=== PATIENT | male | born 1970 | race African-American/Black ===

== ENCOUNTER 2016-09-09 22:58 | Emergency (ER) | payer MEDICARE, OTHER ==
[~2016-09-09] VITALS: Ht 171.4 cm; Wt 92.5 kg
[~2016-09-09 22:58] MED LIST: BENZ1TAB PO; DIVA500 OR; FLUP10TA5 PO; LORA-392 PO; LURA40 OR; OMEP20TA OR
[2016-09-09 23:15] VITALS: BP 135/88; PULSE 71; RESP 16; TEMP 98.2; O2SAT 99
[2016-09-09] MEDS ORDERED: TEGR200T PO (23:18)
[2016-09-09] MEDS ORDERED: ZYPR20TA PO (23:18)
[2016-09-09] MEDS ORDERED: HALO100P IM (23:18)
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
[2016-09-10 00:06] LABS: AUTOMATED NEUTROPHIL # 4.2 TH/MM3 (1.8-7.7); BASOPHIL % 0.4 % (0.0-2.0); EOSINOPHIL # 0.1 TH/MM3 (0-0.4); EOSINOPHIL % 1.8 % (0.0-4.0); HEMATOCRIT 38.7 % (39.0-51.0); HEMO FLAGS DIFF FINAL; LYMPH % 21.6 % (9.0-44.0); LYMPHOCYTE # 1.4 TH/MM3 (1.0-4.8); MEAN CELL VOLUME 85.3 FL (80.0-100.0); MEAN CORPUSCULAR HEMOGLOBIN 29.7 PG (27.0-34.0); MEAN CORPUSCULAR HGB CONC 34.9 % (32.0-36.0); MONO % 11.9 % (0.0-8.0); NEUT % 64.3 % (16.0-70.0); PLATELET COUNT 240 TH/MM3 (150-450); RED BLOOD COUNT 4.54 MIL/MM3 (4.50-5.90); RED CELL DISTRIBUTION WIDTH 12.5 % (11.6-17.2); WHITE BLOOD COUNT 6.6 TH/MM3 (4.0-11.0)
[2016-09-10 00:26] LABS: ANION GAP 7 MEQ/L (5-15)
[2016-09-10 00:27] LABS: AMPHETAMINE, URINE NEG (NEG); BARBITURATES, URINE NEG (NEG); COCAINE, URINE NEG (NEG)
[2016-09-10 00:28] LABS: ALKALINE PHOSPHATASE 105 U/L (45-117); ALT (GPT) 34 U/L (12-78); AST (GOT) 17 U/L (15-37); BICARBONATE 30.9 MEQ/L (21.0-32.0); BLOOD UREA NITROGEN 14 MG/DL (7-18); CHLORIDE 101 MEQ/L (98-107); GLOMERULAR FILTRATION RATE 102 ML/MIN (>89); SODIUM (NA) 139 MEQ/L (136-145); TOTAL BILIRUBIN ADULT 0.1 MG/DL (0.2-1.0)
[2016-09-10 00:29] LABS: ACETAMINOPHEN LESS THAN 2.0 MCG/ML (10.0-30.0)
[2016-09-10 06:06] VITALS: BP 122/81; PULSE 105; RESP 16; O2SAT 99
[2016-09-10] MEDS ORDERED: carBAMazepine 200 MG TAB PO SCH (11:30)
[2016-09-10] MEDS ORDERED: OLANZapine 10 MG TAB PO SCH (11:30)
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
[2016-09-10] MEDS ORDERED: ZYPR20TA PO (12:05)
[2016-09-10] MEDS ORDERED: TEGR200T PO (12:05)
[2016-09-10 12:22] VITALS: BP 112/71; PULSE 104; RESP 18; O2SAT 98
== END 2016-09-10 12:50 | disposition home or self-care (01) ==
LOC: NEPA 22:58 → NEPJ 09-10 12:50
DX: F22 Delusional disorders (principal); F20.0 Paranoid schizophrenia; Z86.69 Personal history of other diseases of the nervous system and sense organs; Z86.59 Personal history of other mental and behavioral disorders
CPT/HCPCS: 80053; 80307; 85025; 99283

== ENCOUNTER 2016-09-30 09:50 | Emergency (ER) | payer OTHER, MEDICARE ==
[~2016-09-30] VITALS: Ht 172.7 cm; Wt 90.0 kg
[~2016-09-30 09:50] MED LIST changes: -BENZ1TAB PO; -DIVA500 OR; -FLUP10TA5 PO; +HALO100P IM; -LORA-392 PO; -LURA40 OR; -OMEP20TA OR; +TEGR200T PO; +ZYPR20TA PO
[2016-09-30 09:52] VITALS: BP 130/89; PULSE 88; RESP 20; TEMP 98.5; O2SAT 98
[2016-09-30 10:09] VITALS: BP 131/77; PULSE 97; RESP 16; O2SAT 100
[2016-09-30 10:44] LABS: AUTOMATED NEUTROPHIL # 7.7 TH/MM3 (1.8-7.7); BASOPHIL % 0.3 % (0.0-2.0); EOSINOPHIL # 0.1 TH/MM3 (0-0.4); EOSINOPHIL % 0.7 % (0.0-4.0); HEMO FLAGS DIFF FINAL; LYMPH % 7.8 % (9.0-44.0); LYMPHOCYTE # 0.7 TH/MM3 (1.0-4.8); MEAN CELL VOLUME 87.5 FL (80.0-100.0); MEAN CORPUSCULAR HEMOGLOBIN 28.6 PG (27.0-34.0); MEAN CORPUSCULAR HGB CONC 32.7 % (32.0-36.0); MONO % 6.7 % (0.0-8.0); NEUT % 84.5 % (16.0-70.0); PLATELET COUNT 224 TH/MM3 (150-450); RED BLOOD COUNT 4.57 MIL/MM3 (4.50-5.90); RED CELL DISTRIBUTION WIDTH 13.3 % (11.6-17.2); WHITE BLOOD COUNT 9.1 TH/MM3 (4.0-11.0)
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
[2016-09-30 10:58] LABS: ANION GAP 9 MEQ/L (5-15); AST (GOT) 16 U/L (15-37); BICARBONATE 28.3 MEQ/L (21.0-32.0); BLOOD UREA NITROGEN 11 MG/DL (7-18); CHLORIDE 105 MEQ/L (98-107); GLOMERULAR FILTRATION RATE 99 ML/MIN (>89); POTASSIUM 3.4 MEQ/L (3.5-5.1); SODIUM (NA) 142 MEQ/L (136-145)
[2016-09-30 11:02] LABS: ALKALINE PHOSPHATASE 117 U/L (45-117); ALT (GPT) 28 U/L (12-78); TOTAL BILIRUBIN ADULT 0.3 MG/DL (0.2-1.0)
[2016-09-30 11:17] LABS: AMPHETAMINE, URINE NEG (NEG); BARBITURATES, URINE NEG (NEG); COCAINE, URINE NEG (NEG)
[2016-09-30 13:21] VITALS: BP 121/58; PULSE 96; RESP 18; TEMP 97.2; O2SAT 100
--- NOTE | 2016-09-30 17:38 | PD.CONS ---
Provisional Diagnosis Admission Date 09/30/2016 Paradox I. 1. Suspect malingering for half-way and possibly also to obtain supportive documentation for a lawsuit that he is filing against the [facility], or for disability 2. Reported history of schizophrenia Paradox II. 1. 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 GAF is 54 presently History of Present Illness Service Psychiatry Consult Requested By Emergency department Reason for Consult Voluntary psychiatric evaluation Primary Care Physician No Primary Care Physician HPI Mr. Jacome is a 46-year-old male with a reported history of paranoid schizophrenia who presented to the emergency department voluntarily with complaints of suicidal ideation and a litany of physical complaints. Psychiatric screening reviewed. Electronic medical record reviewed, and I note the patient was seen by nurse practitioner Mike the middle of last month following his [facility] from [facility]. He was admitted most recently for a single day under Dr. Reza in 2011, and there was suspicion for malingering at that time. Patient seen and examined. Chart reviewed. Case discussed with nurse in the J- pod. There has been no evidence of any suicidal or homicidal behavior while the patient has been under observation in the J-pod. On my examination today, patient is an affable, if somewhat poor historian. He says that he was released a few days ago from a hospital in [place]. He produces a litany of physical complaints including "diabetes, Alzheimer's, bone marrow cancer, premature ejaculation" that he was hoping the ED physician could address for him. He admits to hearing voices but says that these are only "good" voices telling him to take his meds among other things. He denies any deprecatory auditory hallucinations and likewise denies any command auditory hallucinations to hurt self/others. I can elicit no delusional beliefs. Besides his medical complaints, the patient seems primarily concerned with getting supportive documentation for a lawsuit that he is filing against the [facility]. He asks me several times to document things in such a way in service of his lawsuit against the [facility]. Mood is stable and euthymic and I can detect no depressive or hypomanic/manic symptoms. He denies any suicidal or homicidal ideation, intent or plan at this time. The remainder of the psychiatric ROS is negative. The patient requests discharge from the psychiatric emergency room at this time saying that he has to get back to the [facility] half-way or he will lose his bed. Past psychiatric history: Patient reports a history of paranoid schizophrenia. He says that he is managed at [facility]. He takes Tegretol and Zyprexa and also Haldol Decanoate. He has an adequate supply of the Tegretol and Zyprexa. He reports that he was just recently discharged from the inpatient psychiatric unit at a hospital in [place]. He reports 1 prior suicide attempt by overdose on pills. Family history: The patient reports that his mother had schizophrenia and his mother and father both drank alcohol. Chemical dependency history: The patient denies a history of abuse of drugs or alcohol. Social history: The patient is presently homeless and residing at the [facility]. He is single with no children. He reports 3-1/2 years of college. He reports that he is trying to get his disability benefits back and in the meantime he does part-time work. He denies any history. He reports a history of battery charges but insists that this was a crime he did not commit. No reported access to guns or firearms. Patient says that he has a variety of faiths including Zoroastrianism, Restoration and Congregation. Review of Systems Except as stated in HPI: all other systems reviewed are Neg Past Family Social History Coded Allergies: Pork (Verified Allergy, Severe, 09/30/16) Ibuprofen (Verified Allergy, Unknown, 09/30/16) Past Medical History See electronic medical record Reported Medications Olanzapine (Zyprexa)20 Mg Tab20 Mg PO BID #60 TAB Ref 0 09/09/16 Carbamazepine (Tegretol)200 Mg [id number] Mg PO BID #60 TAB Ref 0 09/09/16 Haloperidol Decanoate Inj (Haldol Decanoate Inj)100 Mg/Ml [id number] Mg IM Q28D #1 VIAL Ref 0 09/09/16 Discontinued Scripts Olanzapine (Zyprexa)20 Mg Tab20 Mg PO BID 30 Days Ref 0 Prov:Mckeon,Siomara Anaid Bergeron ARN 09/10/16 Carbamazepine (Tegretol)200 Mg You530 Mg PO BID 30 Days Ref 0 Prov:Mckeon,Siomara Anaid Bergeron ARN 09/10/16 See above Family History See above Social History See above Patient's Strengths (min. 2) Maintain basic hygiene. Verbally fluent. Physical Exam Physical examination completed by ED provider. On my examination today, patient appears to be in no acute physical distress. He is well-nourished and well-developed. No motoric abnormalities noted. Laboratories and vital signs reviewed: Vital Signs Vital Signs Date Time Temp Pulse Resp B/P Pulse Ox O2 Delivery O2 Flow Rate FiO2 09/30/16 13:21 97.2 96 18 121/58 100 Room Air Lab Results Item Value Date Time White Blood Count 9.1 TH/MM3 09/30/16 1015 Hemoglobin 13.1 GM/DL 09/30/16 1015 Platelet Count 224 TH/MM3 09/30/16 1015 Sodium Level 142 MEQ/L 09/30/16 1015 Potassium Level 3.4 MEQ/L L 09/30/16 1015 Chloride Level 105 MEQ/L 09/30/16 1015 Carbon Dioxide Level 28.3 MEQ/L 09/30/16 1015 Blood Urea Nitrogen 11 MG/DL 09/30/16 1015 Creatinine 0.98 MG/DL 09/30/16 1015 Aspartate Amino Transf (AST/SGOT) 16 U/L 09/30/16 1015 Alanine Aminotransferase (ALT/SGPT) 28 U/L 09/30/16 1015 Alkaline Phosphatase 117 U/L 09/30/16 1015 Urine toxicology negative. Mental Status Examination Patient is in hospital gown. He is well groomed. He is awake and alert and oriented to person and hospital at least. No motoric abnormalities noted. Speech is within normal limits for rate, tone and volume. Language and fund of knowledge seem mildly reduced. Mood is fair and affect is full and reactive. Thought process linear. No loosening of associations. No evident delusions. Auditory hallucinations as above. Denies command auditory hallucinations to hurt self/others no other hallucinatory material. Denies suicidal or homicidal ideation. Insight and judgment are fair at best. 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 On my examination today, the patient denies any suicidal or homicidal ideation. He appears to be attending to his basic needs. There is no evidence of any severely unstable mood, anxiety or psychotic disorder in this patient at this time. Synthesizing the above, I magistrate judge the patient does not presently meet Levin act criteria. Given that the patient does not meet Levin act criteria and given that the patient is requesting discharge from the psychiatric emergency room today, I must recommend his discharge from from the ED from a psychiatric standpoint. I do suspect that there is some degree of malingering for the reasons noted above. Patient is to follow up with outpatient psychiatric provider and continue with psychotropic medications. Patient is to return to the psychiatric emergency room for any concerning psychiatric symptoms. Patient is otherwise psychiatrically clear for discharge from the ED. Case discussed with nurse in the J-pod. Thank you very much for this consultation. Brayan Ewing MD Sep 30, 2016 17:38
== END 2016-09-30 18:27 | disposition home or self-care (01) ==
LOC: NEPC 09:50 → NEPJ 18:27
DX: R45.851 Suicidal ideations (principal); R41.83 Borderline intellectual functioning; F20.9 Schizophrenia, unspecified; Z79.899 Other long term (current) drug therapy
CPT/HCPCS: 80053; 80307; 85025; 99284

== ENCOUNTER 2016-10-04 11:08 | Emergency (ER) | payer MEDICARE, OTHER ==
[~2016-10-04] VITALS: Ht 175.3 cm; Wt 92.5 kg
[2016-10-04 11:10] VITALS: BP 138/91; PULSE 98; RESP 16; TEMP 98; O2SAT 98
[2016-10-04] MEDS ORDERED: BENZ100 PO (11:31)
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
[2016-10-04] MEDS ORDERED: ACETAMINOPHEN 325 MG TAB PO ONE (11:45)
== END 2016-10-04 11:46 | disposition home or self-care (01) ==
LOC: NEPK 11:08
DX: R04.0 Epistaxis (principal); B34.9 Viral infection, unspecified; F31.9 Bipolar disorder, unspecified; R73.03 Prediabetes; F20.9 Schizophrenia, unspecified
CPT/HCPCS: 99282

== ENCOUNTER 2016-10-04 18:21 | Emergency (ER) | payer OTHER ==
[~2016-10-04] VITALS: Ht 175.3 cm; Wt 93.0 kg
[~2016-10-04 18:21] MED LIST changes: +BENZ100 PO
[2016-10-04 18:28] VITALS: BP 142/87; PULSE 80; RESP 16; TEMP 97.9; O2SAT 97
--- NOTE | 2016-10-04 18:51 | PD ---
Physical Exam Date Seen by Provider: Oct 04, 2016 Time Seen by Provider: 18:50 Narrative 46 YOBM BY EMS FOR RECURRENT NOSE BLEED. SEEN EARLIER TODAY IN ER VSS. PT AWAITING BED PLACEMENT Data Data Last Documented VS Vital Signs Date Time Temp Pulse Resp B/P Pulse Ox O2 Delivery O2 Flow Rate FiO2 10/04/16 18:28 97.9 80 16 142/87 97 MDM Medical Record Reviewed: Yes Supervised Visit with MARI: Yes Abrahan Ferro Oct 04, 2016 18:51
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
== END 2016-10-04 20:00 | disposition home or self-care (01) ==
LOC: NEPD 18:21
DX: R04.0 Epistaxis (principal); F31.9 Bipolar disorder, unspecified; F20.9 Schizophrenia, unspecified
CPT/HCPCS: 99283

== ENCOUNTER 2016-10-12 21:31 | Emergency (ER) | payer MEDICARE, OTHER ==
[~2016-10-12] VITALS: Ht 188 cm; Wt 93.0 kg
[2016-10-12 21:45] VITALS: BP 120/84; PULSE 64; RESP 16; TEMP 98.5; O2SAT 100
--- NOTE | 2016-10-12 22:06 | PD ---
Physical Exam Time Seen by Provider: 22:00 Narrative Pt presents to ED for evaluation of Bilateral knee pain. Pt has history of bilateral leg pain and takes medication for this, but states after lying down for about 2 hours this evening his right leg began to hurt, primarily around the knee cap. He does not recall any new injury. He states when he got out of the van to get here, his left knee started to hurt. Denies any recent illnesses. Pt has history of bipolar, paranoid schizophrenia, parkinsons disease , PTSD, borderline diabetic, anxiety. Data Data Last Documented VS Vital Signs Date Time Temp Pulse Resp B/P Pulse Ox O2 Delivery O2 Flow Rate FiO2 10/12/16 21:45 98.5 64 16 120/84 100 MDM Medical Record Reviewed: Yes Supervised Visit with MARI: No Narrative Course 46 year old male presents to ED for evaluation of bilateral knee pain. Appears without distress. vSS Condition: Stable Nadiya Elizabeth Oct 12, 2016 22:06
[2016-10-12] MEDS ORDERED: CAPS0.073 TOPICAL (22:26)
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
== END 2016-10-12 22:56 | disposition home or self-care (01) ==
LOC: NEPK 21:31
DX: M25.562 Pain in left knee (principal); M25.561 Pain in right knee; E11.9 Type 2 diabetes mellitus without complications
CPT/HCPCS: 99283

== ENCOUNTER 2016-10-15 17:01 | Emergency (ER) | payer MEDICARE, OTHER ==
[~2016-10-15] VITALS: Ht 175.3 cm; Wt 93.0 kg
[~2016-10-15 17:01] MED LIST changes: +CAPS0.073 TOPICAL
[2016-10-15 17:03] VITALS: BP 141/86; PULSE 79; RESP 18; TEMP 97.8; O2SAT 98
--- NOTE | 2016-10-15 17:12 | PD ---
Physical Exam Time Seen by Provider: 17:09 Narrative 46yo M c/o SI. No current plan.. HX of suicidal attempt. On psych meds and says they are not working. Also c/o posterior head and neck pain on and off for the past 20-30 days; onset 20 minutes ago. reports vomiting once yesterday and the day before. Patient stable. Patient seen in triage. Awaiting bed placement. Data Data Last Documented VS Vital Signs Date Time Temp Pulse Resp B/P Pulse Ox O2 Delivery O2 Flow Rate FiO2 10/15/16 17:03 97.8 79 18 141/86 98 MDM Supervised Visit with MARI: Brenda Woodson Oct 15, 2016 17:11
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
[2016-10-15] MEDS ORDERED: traMADol HCL 50 MG TAB PO ONE (19:00)
--- NOTE | 2016-10-15 19:28 | RADRPT ---
EXAM DATE/TIME: 10/15/2016 19:07 [place] COMPARISON: No previous studies available for comparison. INDICATIONS : Cephalgia. RADIATION DOSE: 43.43 CTDIvol (mGy) MEDICAL HISTORY : Seizures. SURGICAL HISTORY : None. ENCOUNTER: Initial ACUITY: 1 month PAIN SCALE: 10/10 LOCATION: cranial TECHNIQUE: Multiple contiguous axial images were obtained of the head. Using automated exposure control and adj ustment of the mA and/or kV according to patient size, radiation dose was kept as low as reasonably a chievable to obtain optimal diagnostic quality images. FINDINGS: There is no evidence for intracranial hemorrhage, mass effect, mass lesions, edema, or extra-axial fl uid collections. The visualized bony structures appear intact. The ventricles are normal size for t he patient's age. There are no signs of acute infarction for technique. CONCLUSION: Unremarkable study. Sarah Joseph MD on October 15, 2016 at 19:26 Board Certified Radiologist. This report was verified electronically.
[2016-10-15 19:48] LABS: AUTOMATED NEUTROPHIL # 4.5 TH/MM3 (1.8-7.7); BASOPHIL % 0.5 % (0.0-2.0); EOSINOPHIL # 0.1 TH/MM3 (0-0.4); EOSINOPHIL % 1.5 % (0.0-4.0); HEMATOCRIT 35.2 % (39.0-51.0); HEMO FLAGS DIFF FINAL; LYMPH % 17.1 % (9.0-44.0); LYMPHOCYTE # 1.1 TH/MM3 (1.0-4.8); MEAN CORPUSCULAR HEMOGLOBIN 29.2 PG (27.0-34.0); MONO % 9.6 % (0.0-8.0); NEUT % 71.3 % (16.0-70.0); PLATELET COUNT 289 TH/MM3 (150-450); RED BLOOD COUNT 4.09 MIL/MM3 (4.50-5.90); WHITE BLOOD COUNT 6.2 TH/MM3 (4.0-11.0)
[2016-10-15 19:57] LABS: ANION GAP 8 MEQ/L (5-15)
[2016-10-15 20:00] LABS: ALKALINE PHOSPHATASE 115 U/L (45-117); ALT (GPT) 26 U/L (12-78); AST (GOT) 17 U/L (15-37); BICARBONATE 27.7 MEQ/L (21.0-32.0); BLOOD UREA NITROGEN 11 MG/DL (7-18); CHLORIDE 106 MEQ/L (98-107); GLOMERULAR FILTRATION RATE 111 ML/MIN (>89); POTASSIUM 3.6 MEQ/L (3.5-5.1); SODIUM (NA) 142 MEQ/L (136-145); TOTAL BILIRUBIN ADULT 0.1 MG/DL (0.2-1.0)
[2016-10-15 21:42] LABS: AMPHETAMINE, URINE NEG (NEG); BARBITURATES, URINE NEG (NEG); COCAINE, URINE NEG (NEG)
[2016-10-16 04:24] VITALS: BP 110/56; PULSE 99; RESP 19; TEMP 98.7; O2SAT 95
[2016-10-16 06:00] VITALS: BP 111/55; PULSE 92; RESP 17; O2SAT 98
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
== END 2016-10-16 12:03 | disposition home or self-care (01) ==
LOC: NEPE 17:01 → NEPJ 10-16 12:03
DX: R45.851 Suicidal ideations (principal); F20.9 Schizophrenia, unspecified; F41.8 Other specified anxiety disorders; E11.9 Type 2 diabetes mellitus without complications
CPT/HCPCS: 70450; 80053; 80307; 85025

== ENCOUNTER 2016-12-23 04:16 | Inpatient (IN) | payer MEDICARE, MEDICAID ==
[~2016-12-23] VITALS: Ht 175.3 cm; Wt 93.8 kg
[2016-12-23 04:54] VITALS: BP 121/80; PULSE 56; RESP 18; TEMP 97.7; O2SAT 96
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
[2016-12-23] MEDS ORDERED: ACETAMINOPHEN 325 MG TAB PO ONE (10:00)
[2016-12-23 12:32] LABS: BARBITURATES, URINE NEG (NEG)
[2016-12-23 12:37] LABS: AMPHETAMINE, URINE NEG (NEG); COCAINE, URINE NEG (NEG)
[2016-12-23 12:39] VITALS: BP 120/77; PULSE 72; RESP 18; O2SAT 100
[2016-12-23] MEDS ORDERED: ARIP1TAB5 PO (12:58)
[2016-12-23] MEDS ORDERED: LORazepam 1 MG TAB PO PRN (13:00)
[2016-12-23] MEDS ORDERED: ACETAMINOPHEN 325 MG TAB PO PRN (13:00)
[2016-12-23] MEDS ORDERED: LORazepam 0.5 MG TAB PO PRN (13:00)
[2016-12-23] MEDS ORDERED: LORazepam 2 MG/ML VIAL IM PRN ×2 (13:00)
[2016-12-23] MEDS ORDERED: diphenhydrAMINE HCL 50 MG/ML VIAL IM PRN (13:00)
[2016-12-23] MEDS ORDERED: MAGNESIUM HYDROXIDE SUSP 30 ML CUP PO PRN (13:00)
[2016-12-23] MEDS ORDERED: ALUMINUM/MAGNESIUM/SIMETH 30 ML CUP PO PRN (13:00)
[2016-12-23] MEDS ORDERED: diphenhydrAMINE HCL 50 MG CAP PO PRN (13:00)
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
[2016-12-23 14:23] VITALS: BP 132/74; PULSE 58; RESP 18; TEMP 97.6; O2SAT 99
[2016-12-23 14:28] VITALS: BP 132/74; PULSE 58; RESP 18; O2SAT 99
[2016-12-23 18:00] VITALS: BP 104/56; PULSE 105; RESP 20; TEMP 98.6; O2SAT 99
[2016-12-23] MEDS: OLANZapine 10 MG TAB PO SCH (20:27)
[2016-12-23] MEDS: carBAMazepine 200 MG TAB PO SCH (20:28)
[2016-12-23] MEDS: traZODone HCL 50 MG TAB PO PRN (20:28)
[2016-12-23] MEDS ORDERED: ARIPiprazole 10 MG TAB PO SCH (21:00)
[2016-12-24 05:41] VITALS: BP 112/59; PULSE 73; RESP 16; TEMP 98.6; O2SAT 99
--- NOTE | 2016-12-24 08:14 | EKG ---
Date Performed: 12/24/2016 Time Performed: 07:33:00 PTAGE: 46 years EKG: SINUS BRADYCARDIA BORDERLINE ECG NO PREVIOUS TRACING DOCTOR: Luis A Toledo Interpretating Date/Time 12/24/2016 08:11:00
[2016-12-24 08:38] LABS: AUTOMATED NEUTROPHIL # 3.6 TH/MM3 (1.8-7.7); BASOPHIL % 0.4 % (0.0-2.0); EOSINOPHIL # 0.1 TH/MM3 (0-0.4); EOSINOPHIL % 2.4 % (0.0-4.0); HEMATOCRIT 42.4 % (39.0-51.0); HEMO FLAGS DIFF FINAL; LYMPH % 27.1 % (9.0-44.0); LYMPHOCYTE # 1.6 TH/MM3 (1.0-4.8); MEAN CELL VOLUME 85.3 FL (80.0-100.0); MEAN CORPUSCULAR HEMOGLOBIN 27.8 PG (27.0-34.0); MEAN CORPUSCULAR HGB CONC 32.5 % (32.0-36.0); NEUT % 61.1 % (16.0-70.0); PLATELET COUNT 259 TH/MM3 (150-450); RED BLOOD COUNT 4.98 MIL/MM3 (4.50-5.90); WHITE BLOOD COUNT 5.9 TH/MM3 (4.0-11.0)
[2016-12-24 08:40] LABS: ANION GAP 8 MEQ/L (5-15); AST (GOT) 14 U/L (15-37); BICARBONATE 26.3 MEQ/L (21.0-32.0); BLOOD UREA NITROGEN 12 MG/DL (7-18); CHLORIDE 108 MEQ/L (98-107); GLOMERULAR FILTRATION RATE 117 ML/MIN (>89); POTASSIUM 3.6 MEQ/L (3.5-5.1); SODIUM (NA) 142 MEQ/L (136-145)
[2016-12-24 08:50] LABS: ALKALINE PHOSPHATASE 123 U/L (45-117); ALT (GPT) 36 U/L (12-78); HDL CHOLESTEROL 73.8 MG/DL (40.0-60.0); LDL CHOLESTEROL 91 MG/DL (0-99); TOTAL BILIRUBIN ADULT 0.2 MG/DL (0.2-1.0)
[2016-12-24] MEDS: carBAMazepine 200 MG TAB PO SCH (08:58)
[2016-12-24] MEDS: OLANZapine 10 MG TAB PO SCH (08:58)
[2016-12-24] MEDS ORDERED: NICOTINE 21 MG/24 HR PATCH T-DERMAL SCH (09:00)
[2016-12-24] MEDS ORDERED: REMOVE OLD PATCH T-DERMAL SCH (09:00)
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
[2016-12-24 16:13] LABS: HEMOGLOBIN A1a 1.1 %; HEMOGLOBIN A1b 0.8 %; HEMOGLOBIN Ao 85.7 %; HEMOGLOBIN F 0.9 %; HEMOGLOBIN LA1C 1.8 %; HEMOGLOBIN P3 3.7 %
[2016-12-24 18:00] VITALS: BP 110/73; PULSE 69; RESP 18; TEMP 98.3; O2SAT 98
[2016-12-24] MEDS ORDERED: OLANZapine 10 MG TAB PO SCH (21:00)
[2016-12-24] MEDS ORDERED: carBAMazepine 200 MG TAB PO SCH (21:00)
[2016-12-24] MEDS: traZODone HCL 50 MG TAB PO PRN (21:26)
[2016-12-25 05:49] VITALS: BP 108/59; PULSE 61; RESP 16; TEMP 97; O2SAT 99
[2016-12-25] MEDS: carBAMazepine 200 MG TAB PO SCH ×2 (08:28→13:00)
[2016-12-25] MEDS ORDERED: CARB200T PO ×2 (12:28)
[2016-12-25] MEDS ORDERED: OLAN10TA PO (12:28)
--- NOTE | 2016-12-25 12:28 | HHI.DS ---
Psychiatry Discharge Summary Inpatient Psychiatric care?: Yes Advance Directive: No Reason Not Provided: Due to Patient Condition Mental Health AdvanceDirective: No Health Care Proxy: No Admission Admission Date Dec 23, 2016 at 12:52 Admission Diagnosis: (1) Chronic paranoid schizophrenia ICD Code: F20.0 Brief History 46-year-old male with a long history of chronic paranoid schizophrenia, including multiple psychiatric hospitalizations, presenting now with auditory and visual hallucinations, paranoid delusions and suicidal plans. Patient describes several fairly recent psychiatric hospitalizations including one in September for approximately one week due to psychotic symptoms and suicidal thinking. He is presenting with the same symptoms at this time. He feels others are trying to persecute him and do not like him. In fact, when this physician introduced himself to the patient, the patient said this physician does not like him. Patient feels persecuted by the staff at [facility]. He felt persecuted during his last hospitalization in the [facility]. He felt persecuted when he was in the [facility] for several months at a time. He acknowledges auditory hallucinations which are critical of him and encourage him to kill himself. He has a plan of overdosing on his own medication. He is fearful to go home to his roommate, because he has paranoid thoughts about his roommate and people in general. The patient is reporting no history of alcohol or drug abuse and that he is compliant with his medications, which include Haldol decanoate, Zyprexa, Tegretol and BuSpar. Unfortunately, the patient appears to have tardive dyskinesia and it is primarily showing up in his lower extremities. At this time he is unable to contract for safety and would like to be admitted. Tobacco Use In Past 30 Days: 5 or More Cigarettes/Day Alcohol Use: Never Hospital Course Patient was admitted to a locked, inpatient psychiatric unit. Appropriate precautions were in place throughout patient's hospital stay. Patient was seen and examined daily on the unit by psychiatry and also visited by counselor. Psychotropic medications were adjusted, and patient tolerated medication changes well without side effects. There was no evidence of suicidality or homicidality on the inpatient unit. He was noted by staff to be quite childlike but was no real behavioral problem. He was compliant with medications. He did complete an application for voluntary admission and then immediately signed a right of release. On the day of discharge: Patient seen and examined with counselor. Chart reviewed. Case discussed with nursing staff. Per nurse, patient is persisting in his desire to leave the hospital. He has been in good behavioral control overnight. He presents to me today as childlike and somewhat faultfinding. It is my suspicion that this patient has some degree of intellectual disability. His insight into his mental illness seems poor. He denies any suicidal or homicidal ideation, intent or plan. He denies any audiovisual hallucinations. There is some very vague ongoing paranoia but no other delusional material. When I discuss concerns raised by case resource manager yesterday, patient blandly dismisses these, noting "he didn't say that." No depressive or hypomanic/manic symptoms. He is well groomed and attending to basic needs. He denies side effects from medications and has no physical complaints. I have again spoken with patient's case resource manager Chi Richardson , who reports that his main concerns for the patient are to do with his tenuous housing situation. Chi has no safety concerns regarding patient being a risk of harm to self/others. Patient presently does not meet criteria for involuntary hospitalization after weighing the relevant factors and based on the available evidence as he is not presently at elevated imminent risk for harm to self/others, nor is there evidence of a significant self-care deficit. I do believe that the suspected intellectual disability confers a chronic but not acute or imminent risk for harm to self/others, but this risk would not be ameliorated by a longer inpatient psychiatric hospital stay. I have strongly recommended to the patient that he remain on the inpatient unit for further observation, and this would also allow case resource manager to shore up social situation , but the patient has declined. Given that his right of release is set to this afternoon and given that he does not presently meet criteria for involuntary psychiatric hospitalization, I am compelled to discharge him from the unit today and will do so AGAINST MEDICAL ADVICE. Patient is to follow-up with outpatient psychiatric provider. He is also to follow-up with primary care. Patient to return to the psychiatric emergency room as part of the general safety plan. Patient has an adequate supply of his psychotropics, and I have provided him with no prescriptions on discharge. Results Blood Pressure 108 / 59 Vital Signs Date Time Temp Pulse Resp B/P Pulse Ox O2 Delivery O2 Flow Rate FiO2 12/25/16 05:49 97.0 61 16 108/59 99 12/23/16 14:28 Room Air Laboratory Tests Test 12/24/16 06:48 Monocytes (%) (Auto) 9.0 % (0.0-8.0) Chloride Level 108 MEQ/L (98-107) Aspartate Amino Transf 14 U/L (15-37) (AST/SGOT) Alkaline Phosphatase 123 U/L (45-117) Albumin 3.3 GM/DL (3.4-5.0) HDL Cholesterol 73.8 MG/DL (40.0-60.0) Laboratory Results Test 12/24/16 06:48 Hemoglobin A1c 5.4 % (4.3-6.0) Triglycerides Level 134 MG/DL (42-150) Cholesterol Level 192 MG/DL (120-200) LDL Cholesterol 91 MG/DL (0-99) HDL Cholesterol 73.8 MG/DL (40.0-60.0) Summary of Procedures None done Imaging None done Pending results at discharge: No Medications # of Antipsychotic meds at D/C: 2 Appropriate >1 Antipsych meds?: 4 Approp Antipsych med options 1 - Minimum of three failed multiple trials of monotherapy. 2 - Documented plan to taper to monotherapy due to previous use of multiple meds OR cross-taper in progress at D/C. 3 - Documentation of augmentation of Clozapine. 4 - Justification other than those listed in allowable values 1-3, document here : [employer] med regimen. Discharge Discharge Date: Dec 25, 2016 Discharge Diagnosis: (1) Chronic paranoid schizophrenia Diagnosis: Principal ICD Code: F20.0 (2) Borderline intellectual functioning Diagnosis: Secondary ICD Code: R41.83 Mental Status Exam at Disch Patient is casually dressed. He is well groomed. He is awake and alert and oriented to person, Hospital and approximate date. No abnormal motor movements noted. Speech is within normal limits for rate, tone and volume. Language and fund of knowledge seem reduced. Focus and concentration fair. Mood is stable and affect somewhat childlike. Thought process perseverative on discharge. No loosening of associations. Some residual mild paranoia but no other delusional material. Denies audiovisual hallucinations. Denies suicidal or homicidal ideation, intent or plan. Insight and judgment are likely chronically poor. Pt Condition on Discharge: Guarded (AGAINST MEDICAL ADVICE discharge) Discharge Disposition: Discharge Home Discharge Instructions Diet Instructions: As Tolerated, No Restrictions Activities you can perform: Weight Bearing as Nani Scheduled Appointment: as per counselor's notes New Medications: Carbamazepine (Carbamazepine) 200 Mg Tab 300 MG PO HS Order is to update med rec only. Patient has adequate supply. Mental Health Days 0 Ref 0 TAB Carbamazepine (Carbamazepine) 200 Mg Tab 200 MG PO BID@ Order is to update med rec only. Patient has adequate supply. Mental Health Days 0 Ref 0 TAB Olanzapine (Olanzapine) 10 Mg Tab 30 MG PO HS Dose changed, but patient has adequate supply. Mental Health Days 0 Ref 0 TAB Discontinued Medications: Aripiprazole (Abilify) 10 Mg Tab 10 MG PO DAILY #30 Ref 0 TAB Benzonatate (Tessalon Perles) 100 Mg Cap 100 MG PO TID PRN COUGH #20 Ref 0 CAP Capsaicin Topical (Capsagel Maximum Strength Topical) 0.075% Gel 1 APPLIC TOPICAL BID Pain Management Days 14 Ref 0 TUBE Carbamazepine (Tegretol) 200 Mg Tab 200 MG PO BID #60 Ref 0 TAB Haloperidol Decanoate Inj (Haldol Decanoate Inj) 100 Mg/Ml Inj 300 MG IM Q28D Schizophrenia #1 Ref 0 VIAL Olanzapine (Zyprexa) 20 Mg Tab 20 MG PO BID #60 Ref 0 TAB Discharge Time > 30 minutes Discharge/Advance Care Plan Health Problems: (1) Chronic paranoid schizophrenia Goals to promote your health * To prevent worsening of your condition and complications * To maintain your health at the optimal level Directions to meet your goals Take your medications as prescribed Follow your dietary instruction Follow activity as directed Keep your appointments as scheduled Take your immunizations and boosters as scheduled If your symptoms worsen call your PCP, if no PCP go to Urgent Care Center or Emergency Room For 18/01 questions related to your inpatient stay or results of tests pending at discharge, please contact Dr. Brayan Ewing at Smoking is Dangerous to Your Health. Avoid second hand smoking Brayan Ewing MD Dec 25, 2016 12:28
== END 2016-12-25 14:00 | disposition left against medical advice (07) | DRG 885 ==
LOC: NEPJ 04:16 → NEDA 12:52 → H260 14:10
PROVIDERS: ADMIT Psychiatry & Neurology Psychiatry; ATTEND Psychiatry & Neurology Psychiatry
DX: F20.0 Paranoid schizophrenia (principal); R45.851 Suicidal ideations; Z91.14 Patient's other noncompliance with medication regimen; G89.29 Other chronic pain; G24.01 Drug induced subacute dyskinesia; M79.604 Pain in right leg; F17.210 Nicotine dependence, cigarettes, uncomplicated; F41.9 Anxiety disorder, unspecified; R41.83 Borderline intellectual functioning; E66.3 Overweight
CPT/HCPCS: 80053; 80061; 80156; 80307; 83036; 84443; 85025; 93005

== ENCOUNTER 2017-01-04 12:03 | Emergency (ER) | payer MEDICARE, MEDICAID ==
[~2017-01-04] VITALS: Ht 175.3 cm; Wt 96.0 kg
[~2017-01-04 12:03] MED LIST changes: -BENZ100 PO; -CAPS0.073 TOPICAL; +CARB200T PO; -HALO100P IM; +OLAN10TA PO; -TEGR200T PO; -ZYPR20TA PO
[2017-01-04 12:05] VITALS: BP 147/83; PULSE 102; RESP 20; TEMP 98.4; O2SAT 97
--- NOTE | 2017-01-04 12:10 | PD ---
Physical Exam Time Seen by Provider: 12:08 Narrative 46 y/o male here with discomfort to the R foot great toenail. Vital signs reviewed. Seen at triage desk. Awaiting bed placement. Data Data Last Documented VS Vital Signs Date Time Temp Pulse Resp B/P Pulse Ox O2 Delivery O2 Flow Rate FiO2 01/04/17 12:05 98.4 102 20 147/83 97 Room Air MDM Medical Record Reviewed: Yes Supervised Visit with MARI: Emre Mendez Jan 04, 2017 12:10
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
[2017-01-04] MEDS ORDERED: BENZ0.5T PO (13:00)
[2017-01-04] MEDS ORDERED: OMEP20TA PO (13:00)
== END 2017-01-04 13:24 | disposition home or self-care (01) ==
LOC: NEPD 12:03
DX: B35.1 Tinea unguium (principal); S91.202A Unspecified open wound of left great toe with damage to nail, initial encounter; X58.XXXA Exposure to other specified factors, initial encounter; R73.03 Prediabetes; F20.9 Schizophrenia, unspecified; F31.9 Bipolar disorder, unspecified; F41.9 Anxiety disorder, unspecified
CPT/HCPCS: 11730

== ENCOUNTER 2017-02-03 13:41 | Inpatient (IN) | payer OTHER, MEDICAID ==
[~2017-02-03] VITALS: Ht 175.3 cm; Wt 89.5 kg
[~2017-02-03 13:41] MED LIST changes: +BENZ0.5T PO; +OMEP20TA PO
[2017-02-03 14:00] VITALS: BP 126/71; PULSE 57; RESP 16; TEMP 98; O2SAT 100
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
[2017-02-03 15:05] LABS: AUTOMATED NEUTROPHIL # 4.4 TH/MM3 (1.8-7.7); BASOPHIL % 0.5 % (0.0-2.0); EOSINOPHIL # 0.1 TH/MM3 (0-0.4); HEMATOCRIT 38.7 % (39.0-51.0); HEMO FLAGS DIFF FINAL; LYMPH % 18.2 % (9.0-44.0); LYMPHOCYTE # 1.1 TH/MM3 (1.0-4.8); MEAN CORPUSCULAR HEMOGLOBIN 29.5 PG (27.0-34.0); MEAN CORPUSCULAR HGB CONC 34.6 % (32.0-36.0); NEUT % 70.3 % (16.0-70.0); PLATELET COUNT 242 TH/MM3 (150-450); RED BLOOD COUNT 4.56 MIL/MM3 (4.50-5.90); RED CELL DISTRIBUTION WIDTH 13.4 % (11.6-17.2); WHITE BLOOD COUNT 6.2 TH/MM3 (4.0-11.0)
[2017-02-03 15:10] LABS: ALT (GPT) 26 U/L (12-78); ANION GAP 8 MEQ/L (5-15); AST (GOT) 16 U/L (15-37); BICARBONATE 27.1 MEQ/L (21.0-32.0); BLOOD UREA NITROGEN 10 MG/DL (7-18); CHLORIDE 104 MEQ/L (98-107); GLOMERULAR FILTRATION RATE 95 ML/MIN (>89); POTASSIUM 3.3 MEQ/L (3.5-5.1); SODIUM (NA) 139 MEQ/L (136-145)
[2017-02-03 15:12] LABS: ALKALINE PHOSPHATASE 115 U/L (45-117); TOTAL BILIRUBIN ADULT 0.2 MG/DL (0.2-1.0)
[2017-02-03] MEDS ORDERED: POTASSIUM CHLORIDE 10 MEQ CONTROLLED RELEASE TAB PO ONE (15:30)
[2017-02-03 17:47] VITALS: BP 118/67; PULSE 55; RESP 16; O2SAT 98
[2017-02-03] MEDS ORDERED: HALO100P IM (20:30)
[2017-02-03 22:09] VITALS: BP 123/65; PULSE 57; RESP 17; O2SAT 100
[2017-02-04] MEDS ORDERED: OLANZapine 10 MG TAB PO SCH (00:30)
[2017-02-04] MEDS: BENZTROPINE MESYLATE 1 MG TAB PO SCH ×2 (00:30→21:55)
[2017-02-04] MEDS ORDERED: carBAMazepine 200 MG TAB PO SCH (00:30)
[2017-02-04 01:22] VITALS: BP 111/70; PULSE 54; RESP 18; TEMP 97.8; O2SAT 98
[2017-02-04 06:01] VITALS: BP 119/66; PULSE 67; RESP 16; TEMP 97.9; O2SAT 100
[2017-02-04] MEDS: carBAMazepine 200 MG TAB PO SCH ×4 (08:43→21:55)
[2017-02-04 09:15] LABS: HDL CHOLESTEROL 80.7 MG/DL (40.0-60.0); LDL CHOLESTEROL 67 MG/DL (0-99)
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
[2017-02-04] MEDS ORDERED: LORazepam 2 MG TAB PO PRN (10:45)
[2017-02-04] MEDS ORDERED: LORazepam 2 MG/ML VIAL IM PRN (10:45)
[2017-02-04] MEDS ORDERED: HALOPERIDOL 10 MG TAB PO PRN (10:45)
[2017-02-04] MEDS ORDERED: diphenhydrAMINE HCL 50 MG/ML VIAL IM PRN (10:45)
[2017-02-04] MEDS ORDERED: diphenhydrAMINE HCL 50 MG CAP PO PRN (10:45)
[2017-02-04] MEDS ORDERED: HALOPERIDOL LACTATE 5 MG/ML AMP IM PRN ×2 (10:45→15:00)
[2017-02-04] MEDS: ACETAMINOPHEN 325 MG TAB PO PRN (13:04)
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
[2017-02-04 16:20] LABS: HEMOGLOBIN A1a 1.4 %; HEMOGLOBIN A1b 0.7 %; HEMOGLOBIN F 0.9 %; HEMOGLOBIN LA1C 1.5 %; HEMOGLOBIN P3 3.5 %
[2017-02-04 18:13] VITALS: BP 125/75; PULSE 59; RESP 17; TEMP 97.8; O2SAT 99
[2017-02-04] MEDS: HALOPERIDOL 5 MG TAB PO SCH (22:11)
[2017-02-05 05:59] VITALS: BP 103/53; PULSE 52; RESP 16; TEMP 98.3; O2SAT 98
[2017-02-05] MEDS: HALOPERIDOL 5 MG TAB PO SCH ×2 (08:33→20:32)
[2017-02-05] MEDS: PANTOPRAZOLE SOD 20 MG DELAYED RELEASE TAB PO SCH (08:33)
[2017-02-05] MEDS: carBAMazepine 200 MG TAB PO SCH ×2 (08:33→20:32)
--- NOTE | 2017-02-05 09:58 | HHI.PYPN ---
Subjective Remarks Patient seen and examined with counselor and nurse. Chart reviewed. Case discussed with nursing staff who reports that family does not want to assist in patient's case because of patient's previous behavior. Patient's half-sister reportedly told RN, "I feel sorry for anyone that takes care of him." On my exam, patient is somatically preoccupied with diffuse pain complaints. He cannot seem to remember the laterality of his pain, e.g. saying his right hand hurts, then his left, then settling on the right. He says his hands, neck, shoulders, feet, knees among other things have been hurting for 2 weeks. He appears to be in no acute distress. He threatens not to take his Haldol PO. He remains delusional about giving millions of dollars to [facility] that he now wants back. He also says, "I gave this hospital money, too. I don't know [how much] , but it's a lot of money." Engages in some staff splitting behavior. Antisocial personality traits noted. No side effects from medications. No other physical complaints. Review of Systems ROS Limitations: Psychotic, Poor Historian Except as stated in HPI: all other systems reviewed are Neg Objective Alert: Yes [place]: Person, Place, Date Mood: Anxious Affect: Restricted Memory Intact: Comment (Confabulates) Hallucinations: Other (No AVH) Delusions: Yes Delusion Type: Grandiose, Paranoid, Other (somatic) Suicidal: Ideation (No SI) Homicidal: Ideation (No HI) Insight/Judgment Poor Remarks No motor abnormalities noted. Thought process fairly linear within delusional system. Grooming and hygiene fair. Patient appears to be in no physical distress and walks with normal gait despite reports of foot pain. Labs Labs reviewed. Vitals/IOs Vital Signs Date Time Temp Pulse Resp B/P Pulse Ox O2 Delivery O2 Flow Rate FiO2 02/05/17 05:59 98.3 52 16 103/53 98 02/03/17 22:09 Room Air Assessment & Plan Problem List: (1) Schizophrenia ICD Code: F20.9 (2) Antisocial personality traits Assessment & Plan Titrate oral Haldol over weekend to target ongoing psychosis. Titrate corresponding IM backup. Plan to administer larger dose of Haldol Dec when patient is next due for this on 02/10 (e.g. 300mg IM) so long as titrating oral Haldol improves psychosis. Otherwise, we may need to consider a different antipsychotic. Continue carbamazepine and Cogentin as ordered. Continue to monitor on high acuity unit. Continue to monitor physical complaints; at present these are too diffuse to act upon, but if patient does identify a concrete complaint, could consider working up further. Continue other medications and care as ordered. Justification for Cont. Inpt. Impairment in reality construction. Medication changes and process. High risk for decompensation in less restrictive environment. Discharge Planning Pending psychiatric stabilization. Request HC Surrog/Guard Advoc?: Yes Problem Qualifiers (1) Schizophrenia: Qualified Code: F20.0 - Paranoid schizophrenia Brayan Ewing MD Feb 05, 2017 09:58
[2017-02-05] MEDS: ACETAMINOPHEN 325 MG TAB PO PRN ×2 (10:39→21:50)
--- NOTE | 2017-02-05 17:45 | EKG ---
Date Performed: 02/04/2017 Time Performed: 13:17:31 PTAGE: 46 years EKG: SINUS BRADYCARDIA VOLTAGE CRITERIA FOR LVH Slight changes of early repolarization. When com pared to previous tracing, no significant change. ABNORMAL ECG PREVIOUS TRACING : 12/24/2016 07.33 DOCTOR: Stewart Martinez Interpretating Date/Time 02/05/2017 17:44:19
[2017-02-05 18:00] VITALS: BP 157/102; PULSE 81; RESP 18; TEMP 98.7; O2SAT 100
[2017-02-05 18:38] VITALS: BP 133/79; PULSE 60
[2017-02-05] MEDS: BENZTROPINE MESYLATE 1 MG TAB PO SCH (20:32)
[2017-02-05] MEDS ORDERED: HALOPERIDOL LACTATE 5 MG/ML AMP IM PRN (21:00)
[2017-02-06 05:56] VITALS: BP 125/71; PULSE 87; RESP 18; TEMP 98.1; O2SAT 98
[2017-02-06] MEDS: PANTOPRAZOLE SOD 20 MG DELAYED RELEASE TAB PO SCH (09:00)
[2017-02-06] MEDS: HALOPERIDOL 5 MG TAB PO SCH ×2 (09:00→20:13)
[2017-02-06] MEDS: carBAMazepine 200 MG TAB PO SCH ×2 (09:00→20:13)
--- NOTE | 2017-02-06 13:29 | HHI.PYPN ---
Subjective Remarks Pt seen and discussed with staff. Pt has been compliant with medication. No aggression on unit. 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 He rambles about plans to attend college and earing an engineering degree and his love for all of humanity. No SI /HI. No medication side effects. Objective Alert: Yes [place]: Person, Place, Date Mood: Anxious Affect: Restricted Memory Intact: Comment (Confabulates) Hallucinations: Other (No AVH) Delusions: Yes Delusion Type: Grandiose, Paranoid, Other (bizarre) Suicidal: Ideation (No SI) Homicidal: Ideation (No HI) Insight/Judgment poor Vitals/IOs Vital Signs Date Time Temp Pulse Resp B/P Pulse Ox O2 Delivery O2 Flow Rate FiO2 02/06/17 05:56 98.1 87 18 125/71 98 02/03/17 22:09 Room Air Assessment & Plan Problem List: (1) Schizophrenia ICD Code: F20.9 (2) Antisocial personality traits Assessment & Plan Continue current tx plan. Estimated LOS: days Justification for Cont. Inpt. psychotic Request HC Surrog/Guard Advoc?: Yes Problem Qualifiers (1) Schizophrenia: Qualified Code: F20.0 - Paranoid schizophrenia Sheela Kaiser MD Feb 06, 2017 13:29
[2017-02-06 18:18] VITALS: BP 131/81; PULSE 71; RESP 18; TEMP 98.3; O2SAT 97
[2017-02-06] MEDS: BENZTROPINE MESYLATE 1 MG TAB PO SCH (20:12)
[2017-02-06] MEDS: ACETAMINOPHEN 325 MG TAB PO PRN (20:13)
[2017-02-07 06:36] VITALS: BP 113/63; PULSE 61; RESP 17; TEMP 97.9; O2SAT 97
[2017-02-07] MEDS: PANTOPRAZOLE SOD 20 MG DELAYED RELEASE TAB PO SCH ×2 (09:00→09:30)
[2017-02-07] MEDS: HALOPERIDOL 5 MG TAB PO SCH ×2 (09:31→20:07)
[2017-02-07] MEDS: carBAMazepine 200 MG TAB PO SCH ×2 (09:31→20:07)
--- NOTE | 2017-02-07 10:59 | HHI.PYPN ---
Subjective Remarks Pt seen and discussed with staff. He has been pacing hallways. Remains grandiose and states that he will be working for [employer] upon discharge. Better boundaries and no behavioral issues. Slept well last night. Objective Alert: Yes [place]: Person, Place, Date Mood: Calm Affect: Restricted Memory Intact: Comment (Confabulates) Hallucinations: Other (No AVH) Delusions: Yes Delusion Type: Grandiose, Paranoid, Other (bizarre) Suicidal: Ideation (No SI) Homicidal: Ideation (No HI) Insight/Judgment poor Vitals/IOs Vital Signs Date Time Temp Pulse Resp B/P Pulse Ox O2 Delivery O2 Flow Rate FiO2 02/07/17 06:36 97.9 61 17 113/63 97 02/03/17 22:09 Room Air Assessment & Plan Problem List: (1) Schizophrenia ICD Code: F20.9 Assessment & Plan Continue current tx plan. Estimated LOS: days Justification for Cont. Inpt. psychosis Request HC Surrog/Guard Advoc?: Yes Problem Qualifiers (1) Schizophrenia: Qualified Code: F20.0 - Paranoid schizophrenia Sheela Kaiser MD Feb 07, 2017 10:59
[2017-02-07] MEDS: ACETAMINOPHEN 325 MG TAB PO PRN ×3 (12:09→20:07)
[2017-02-07 15:47] VITALS: BP 134/62; PULSE 69; RESP 18; TEMP 98.3; O2SAT 99
[2017-02-07] MEDS: BENZTROPINE MESYLATE 1 MG TAB PO SCH (20:07)
[2017-02-08 06:36] VITALS: BP 114/63; PULSE 87; RESP 18; TEMP 98; O2SAT 100
[2017-02-08] MEDS: carBAMazepine 200 MG TAB PO SCH ×2 (08:40→21:07)
[2017-02-08] MEDS: HALOPERIDOL 5 MG TAB PO SCH ×2 (08:40→21:08)
[2017-02-08] MEDS: PANTOPRAZOLE SOD 20 MG DELAYED RELEASE TAB PO SCH (08:41)
[2017-02-08] MEDS: ACETAMINOPHEN 325 MG TAB PO PRN ×2 (08:41→21:07)
[2017-02-08] MEDS ORDERED: HALOPERIDOL DECANOATE 50 MG/ML VIAL IM SCH (09:00)
[2017-02-08 18:59] VITALS: BP 127/81; PULSE 57; RESP 16; TEMP 98.3; O2SAT 99
--- NOTE | 2017-02-08 19:21 | HHI.PYPN ---
Subjective Remarks Patient seen for follow-up, chart reviewed. As per nursing report and discussion patient has been medication compliant been pleasant. Patient found in common area and was able to engage in interview with marine underwriter and nurse. Patient states that he had 1 episode of emesis this morning but denied having any nausea or vomiting at time of interview. Patient stated this patient was "scary" as many patients of ever different reasons with different symptomatology. Patient noted to be tangential at times but denied any auditory hallucinations for the past 3 days but states that when he does have the auditory hallucinations she states hearing a voice stating "he'll be all right". Patient reports his mood as being "nervous" denies any SI, HI at this time Review of Systems Except as stated in HPI: all other systems reviewed are Neg Objective Alert: Yes [place]: Person, Place, Date Mood: Calm Affect: Restricted (but reactive at times) Memory Intact: Comment (Confabulates) Hallucinations: Other (No AVH) Delusions: Yes Delusion Type: Grandiose, Paranoid, Other (bizarre) Suicidal: Ideation (No SI) Homicidal: Ideation (No HI) Insight/Judgment Poor insight, fair impulse control and judgment Vitals/IOs Vital Signs Date Time Temp Pulse Resp B/P Pulse Ox O2 Delivery O2 Flow Rate FiO2 02/08/17 18:59 98.3 57 16 127/81 99 Assessment & Plan Problem List: (1) Schizophrenia ICD Code: F20.9 Assessment & Plan Patient continued to be noted to be psychotic, disorganized at times but able to engage in interview. Patient also noted to be tangential and endorsing auditory hallucinations. Patient to continue current treatment, will be provided with Haldol Decanoate 02/10/17 300 mg IM. Discharge planning in progress Justification for Cont. Inpt. Patient at risk for decompensation at lower level of care Discharge Planning In progress Request HC Surrog/Guard Advoc?: Yes Problem Qualifiers (1) Schizophrenia: Qualified Code: F20.0 - Paranoid schizophrenia Modesto Thurman MD Feb 08, 2017 19:21
[2017-02-08] MEDS: BENZTROPINE MESYLATE 1 MG TAB PO SCH (21:08)
[2017-02-09 05:44] VITALS: BP 113/66; PULSE 96; RESP 18; TEMP 97.9; O2SAT 97
[2017-02-09] MEDS: HALOPERIDOL 5 MG TAB PO SCH ×2 (08:12→20:20)
[2017-02-09] MEDS: carBAMazepine 200 MG TAB PO SCH ×2 (08:12→20:20)
[2017-02-09] MEDS: PANTOPRAZOLE SOD 20 MG DELAYED RELEASE TAB PO SCH (08:13)
[2017-02-09 18:00] VITALS: BP 145/79; PULSE 75; RESP 19; TEMP 97.8; O2SAT 98
--- NOTE | 2017-02-09 18:34 | HHI.PYPN ---
Subjective Remarks Patient seen for follow-up, chart review. After discussion with nursing staff patient noted to be pleasant and friendly with no behavioral issues while on the unit. She and found sitting in hospital bed able to engage in interview. Patient stated feeling "nervous" and had been concerned about where he'll be going postdischarge patient reports that he recently living in [facility] [place] [facility] to his admission for very short time and is concerned whether he will be have a place to live upon discharge. Patient reports it as being "on and off" denies any repeat episode of vomiting but he reports some dizziness. Patient continues to report auditory hallucinations of different voices but states that they don't bother him. Patient states that his mood at this time is low and sad because he is in the hospital. Patient denies any SI, or HI Review of Systems Except as stated in HPI: all other systems reviewed are Neg Objective Alert: Yes [place]: Person, Place, Date Mood: Calm Affect: Restricted (but smiles at times) Memory Intact: Comment (Confabulates) Hallucinations: Other (No AVH) Delusions: Yes Delusion Type: Grandiose, Paranoid, Other (bizarre) Suicidal: Ideation (No SI) Homicidal: Ideation (No HI) Insight/Judgment Poor insight, fair post control and judgment Vitals/IOs Vital Signs Date Time Temp Pulse Resp B/P Pulse Ox O2 Delivery O2 Flow Rate FiO2 02/09/17 05:44 97.9 96 18 113/66 97 Assessment & Plan Problem List: (1) Schizophrenia ICD Code: F20.9 Assessment & Plan Patient to continue current treatment regimen, continues to endorse some auditory hallucinations but there are no distressing to him at this time. Patient perseverative on his livings situation upon discharge which she has a case investigator who was currently looking into possible options. Discharge planning in progress. Justification for Cont. Inpt. Patient at risk for further decompensation if a lower level of care Discharge Planning In progress Request HC Surrog/Guard Advoc?: Yes Problem Qualifiers (1) Schizophrenia: Qualified Code: F20.0 - Paranoid schizophrenia Modesto Thurman MD Feb 09, 2017 18:33
[2017-02-09] MEDS: BENZTROPINE MESYLATE 1 MG TAB PO SCH (20:20)
[2017-02-09] MEDS: ACETAMINOPHEN 325 MG TAB PO PRN (20:21)
[2017-02-10 06:01] VITALS: BP 102/59; PULSE 97; RESP 18; TEMP 97.9; O2SAT 98
[2017-02-10] MEDS: PANTOPRAZOLE SOD 20 MG DELAYED RELEASE TAB PO SCH (09:00)
[2017-02-10] MEDS: HALOPERIDOL 5 MG TAB PO SCH ×2 (09:32→20:38)
[2017-02-10] MEDS: carBAMazepine 200 MG TAB PO SCH ×2 (09:32→20:39)
[2017-02-10] MEDS: ACETAMINOPHEN 325 MG TAB PO PRN ×2 (09:35→20:41)
--- NOTE | 2017-02-10 16:51 | HHI.PYPN ---
Subjective Remarks Patient seen for follow-up, chart reviewed. As discussion with nursing staff patient continues with somatic complaints at times, but has been appropriate. Patient found in group was able to engage in interview selling underwriter today. Patient states that his correctional counselor/case manager came today which she was pleased about He also mentions having seen the mental health floor as he is scheduled to appear in mental health court tomorrow as there is an application for patient to have a guardian advocate. Patient states that he is feeling a little anxious today but was unable to identify why. Patient was attending group activities today [place] and which she is enjoying. Patient reports tolerating medication well and denies any adverse drug reactions. Patient stated his mood has been "okay" denies feeling depressed anxious or having any active psychotic symptoms at time of interview. Review of Systems Except as stated in HPI: all other systems reviewed are Neg Objective Alert: Yes [place]: Person, Place, Date Mood: Calm Affect: Appropriate Memory Intact: Comment (not formally assessed) Hallucinations: Other (denies at this time) Delusions: Yes Delusion Type: Paranoid Suicidal: Ideation (No SI) Homicidal: Ideation (No HI) Insight/Judgment Limited insight, fair impulse control and judgment Remarks Patient noted to be tangential at times. Vitals/IOs Vital Signs Date Time Temp Pulse Resp B/P Pulse Ox O2 Delivery O2 Flow Rate FiO2 02/10/17 06:01 97.9 97 18 102/59 98 Assessment & Plan Problem List: (1) Schizophrenia ICD Code: F20.9 Assessment & Plan Patient at this time denies any active psychotic symptoms, is noted to have somatic complaints with nursing staff at times. Patient continues to comply medication regimen. Patient will be provided with Haldol decanoate 300 mg IM today. Monitor her medication response and adverse drug reactions. Patient will. Mental health court tomorrow as there is no indication for patient to have a guardian advocate appointed. Discharge planning in progress Justification for Cont. Inpt. Patient at risk for further decompensation if it lower level of care Discharge Planning In progress Request HC Surrog/Guard Advoc?: Yes Problem Qualifiers (1) Schizophrenia: Qualified Code: F20.0 - Paranoid schizophrenia Mdoesto Thurman MD Feb 10, 2017 16:51
[2017-02-10] MEDS ORDERED: HALOPERIDOL DECANOATE 50 MG/ML VIAL IM SCH (17:00)
[2017-02-10 18:08] VITALS: BP 109/75; PULSE 73; RESP 18; TEMP 97.6; O2SAT 100
[2017-02-10] MEDS: BENZTROPINE MESYLATE 1 MG TAB PO SCH (20:38)
[2017-02-11 06:21] VITALS: BP 103/55; PULSE 55; RESP 18; TEMP 97.5; O2SAT 98
[2017-02-11] MEDS: PANTOPRAZOLE SOD 20 MG DELAYED RELEASE TAB PO SCH ×2 (08:25→08:41)
[2017-02-11] MEDS: ACETAMINOPHEN 325 MG TAB PO PRN ×4 (08:25→21:48)
[2017-02-11] MEDS: HALOPERIDOL 5 MG TAB PO SCH ×2 (08:25→20:04)
[2017-02-11] MEDS: carBAMazepine 200 MG TAB PO SCH ×2 (08:25→20:03)
[2017-02-11 18:12] VITALS: BP 114/69; PULSE 60; RESP 18; TEMP 98.1; O2SAT 100
[2017-02-11] MEDS: BENZTROPINE MESYLATE 1 MG TAB PO SCH (20:04)
--- NOTE | 2017-02-11 20:29 | HHI.PYPN ---
Subjective Remarks Patient seen for follow-up, chart reviewed. Patient was present at mental health court today and upon return was able to engage in interview with quality analyst/technical writer. Patient states that he was feeling anxious today due to the same, continues to be worried about his family relationships. He also concerned about where he will be place to live after discharge. Patient reports adherence to medication treatment and denies any adverse drug reactions. Patient denies any acute psychotic symptoms at this time. Patient states that today's feeling "bad" but was not able to identify any specific physical complaints. Review of Systems Except as stated in HPI: all other systems reviewed are Neg Objective Alert: Yes [place]: Person, Place, Date Mood: Calm Affect: Appropriate Memory Intact: Comment (not formally assessed) Hallucinations: Other (denies at this time) Delusions: Yes Delusion Type: Paranoid Suicidal: Ideation (No SI) Homicidal: Ideation (No HI) Insight/Judgment Limited insight, judgment, impulse control Vitals/IOs Vital Signs Date Time Temp Pulse Resp B/P Pulse Ox O2 Delivery O2 Flow Rate FiO2 02/11/17 18:12 98.1 60 18 114/69 100 Assessment & Plan Problem List: (1) Schizophrenia ICD Code: F20.9 Assessment & Plan Patient continues to maintain stable mood, with no reported active psychotic symptoms. Patient tolerated medication regimen well patient to continue current treatment. Patient to adhere to recommendations as per primary medical team. Discharge planning in progress Justification for Cont. Inpt. Patient at risk for further decompensation if at lower level of care. Discharge Planning In progress Request HC Surrog/Guard Advoc?: Yes Problem Qualifiers (1) Schizophrenia: Qualified Code: F20.0 - Paranoid schizophrenia Modesto Thurman MD Feb 11, 2017 20:29
[2017-02-12 06:25] VITALS: BP 89/54; PULSE 54; RESP 18; TEMP 97.8; O2SAT 96
[2017-02-12] MEDS: ACETAMINOPHEN 325 MG TAB PO PRN (06:37)
[2017-02-12] MEDS: PANTOPRAZOLE SOD 20 MG DELAYED RELEASE TAB PO SCH (08:30)
[2017-02-12] MEDS: carBAMazepine 200 MG TAB PO SCH ×2 (08:30→20:33)
[2017-02-12] MEDS: HALOPERIDOL 5 MG TAB PO SCH ×2 (08:30→20:33)
[2017-02-12 18:00] VITALS: BP 104/67; PULSE 70; RESP 16; TEMP 98.2; O2SAT 98
--- NOTE | 2017-02-12 18:18 | HHI.PYPN ---
Subjective Remarks Patient seen for follow-up, chart review. After discussion with nursing staff patient reported having headache earlier but was given Tylenol. Patient also noted to be anxious while on the unit. Patient found in casual clothing, noted to be calm and cooperative interview. Patient states that he is feeling less anxious now that he is trying to reach his family as he reports wants them to continue to be involved in her life. Patient states that while he is in the hospital he would like to have a dentist replace his teeth as well as have his first left toe with onychomycosis treated. Patient reports tolerating medications well with no adverse drug reactions at this time. Review of Systems Except as stated in HPI: all other systems reviewed are Neg Objective Alert: Yes [place]: Person, Place, Date Mood: Calm Affect: Appropriate Memory Intact: Comment (not formally assessed) Hallucinations: Other (denies at this time) Delusions: Yes Delusion Type: Paranoid Suicidal: Ideation (No SI) Homicidal: Ideation (No HI) Insight/Judgment Limited insight, fair impulse control and judgment Vitals/IOs Vital Signs Date Time Temp Pulse Resp B/P Pulse Ox O2 Delivery O2 Flow Rate FiO2 02/12/17 18:00 98.2 70 16 104/67 98 Assessment & Plan Problem List: (1) Schizophrenia ICD Code: F20.9 Assessment & Plan Patient is time continues to be stable with no acute psychotic symptoms at this time, continues to endorse some somatic complaints and noted to be slightly anxious as patient is currently waiting placement. Continue current treatment discharge planning in progress Justification for Cont. Inpt. Patient at risk for further decompensation if at lower level of care. Discharge Planning In progress Request HC Surrog/Guard Advoc?: Yes Problem Qualifiers (1) Schizophrenia: Qualified Code: F20.0 - Paranoid schizophrenia Modesto Thurman MD Feb 12, 2017 18:18
[2017-02-12] MEDS: BENZTROPINE MESYLATE 1 MG TAB PO SCH (20:33)
[2017-02-13 05:55] VITALS: BP 111/67; PULSE 84; RESP 16; TEMP 98.2; O2SAT 97
[2017-02-13] MEDS: PANTOPRAZOLE SOD 20 MG DELAYED RELEASE TAB PO SCH (09:00)
[2017-02-13] MEDS: HALOPERIDOL 5 MG TAB PO SCH ×2 (09:08→20:35)
[2017-02-13] MEDS: ACETAMINOPHEN 325 MG TAB PO PRN ×2 (09:09→18:43)
[2017-02-13] MEDS: carBAMazepine 200 MG TAB PO SCH ×2 (09:09→20:35)
--- NOTE | 2017-02-13 17:31 | HHI.PYPN ---
Subjective Remarks Patient was seen and case discussed with nursing. Patient is pleasant and cooperative with exam. He is respectful and cooperative throughout the interview. His social and pleasant with others. His compliant with his medications. Complaining of some indigestion. Compliant with medications. Denies auditory visual hallucinations. Objective Alert: Yes [place]: Person, Place, Date Mood: Calm Affect: Appropriate Memory Intact: Comment (not formally assessed) Hallucinations: Other (denies at this time) Delusions: Yes Delusion Type: Paranoid Suicidal: Ideation (No SI) Homicidal: Ideation (No HI) Insight/Judgment Poor Vitals/IOs Vital Signs Date Time Temp Pulse Resp B/P Pulse Ox O2 Delivery O2 Flow Rate FiO2 02/13/17 05:55 98.2 84 16 111/67 97 Assessment & Plan Problem List: (1) Schizophrenia ICD Code: F20.9 Assessment & Plan Continue current treatment plan Justification for Cont. Inpt. Patient would decompensate in a less restrictive setting Request HC Surrog/Guard Advoc?: Yes Problem Qualifiers (1) Schizophrenia: Qualified Code: F20.0 - Paranoid schizophrenia Kameron Reyes DO Feb 13, 2017 17:31
[2017-02-13 18:38] VITALS: BP 120/80; PULSE 92; RESP 18; TEMP 98; O2SAT 97
[2017-02-13] MEDS: BENZTROPINE MESYLATE 1 MG TAB PO SCH (20:35)
[2017-02-13] MEDS: BISMUTH SUBSALICYLATE 240 ML BTL PO PRN (22:13)
[2017-02-14 06:15] VITALS: BP 130/76; PULSE 85; RESP 17; TEMP 97.2; O2SAT 98
[2017-02-14] MEDS: HALOPERIDOL 5 MG TAB PO SCH ×2 (09:00→20:51)
[2017-02-14] MEDS: PANTOPRAZOLE SOD 20 MG DELAYED RELEASE TAB PO SCH (09:00)
[2017-02-14] MEDS: carBAMazepine 200 MG TAB PO SCH ×2 (09:00→20:31)
[2017-02-14 17:00] VITALS: BP 122/72; PULSE 59; RESP 18; TEMP 97.7; O2SAT 100
--- NOTE | 2017-02-14 19:16 | HHI.PYPN ---
Subjective Remarks Patient was seen and case discussed with nursing. Patient is pleasant and cooperative with exam. Compliant with medications and behaving well on the unit. Patient is perseverative and pressured during the interview. He is complaining of stomach upset but denies pain or nausea or vomiting. Thought process is circumstantial. Patient denies auditory visual hallucinations Objective Alert: Yes [place]: Person, Place, Date Mood: Calm Affect: Appropriate Memory Intact: Comment (not formally assessed) Hallucinations: Other (denies at this time) Delusions: Yes Delusion Type: Paranoid Suicidal: Ideation (No SI) Homicidal: Ideation (No HI) Insight/Judgment Poor Vitals/IOs Vital Signs Date Time Temp Pulse Resp B/P (MAP) Pulse Ox O2 Delivery O2 Flow Rate FiO2 02/14/17 17:00 97.7 59 18 122/72 (89) 100 Assessment & Plan Problem List: (1) Schizophrenia ICD Codes: F20.9 - Schizophrenia, unspecified Status: Acute Assessment & Plan Continue current treatment plan Justification for Cont. Inpt. Patient would decompensate in a less restrictive setting Request HC Surrog/Guard Advoc?: Yes Problem Qualifiers (1) Schizophrenia: Kameron Reyes DO Feb 14, 2017 19:16
[2017-02-14] MEDS: BENZTROPINE MESYLATE 1 MG TAB PO SCH (20:31)
[2017-02-15 05:42] VITALS: BP 122/72; PULSE 68; RESP 18; TEMP 98.1; O2SAT 97
[2017-02-15] MEDS: PANTOPRAZOLE SOD 20 MG DELAYED RELEASE TAB PO SCH ×2 (08:21→08:23)
[2017-02-15] MEDS: HALOPERIDOL 5 MG TAB PO SCH ×2 (08:21→20:04)
[2017-02-15] MEDS: carBAMazepine 200 MG TAB PO SCH ×2 (08:21→20:04)
[2017-02-15] MEDS: BISMUTH SUBSALICYLATE 240 ML BTL PO PRN (10:36)
[2017-02-15] MEDS: ACETAMINOPHEN 325 MG TAB PO PRN (13:47)
[2017-02-15 18:14] VITALS: BP 117/67; PULSE 85; RESP 18; TEMP 98.1; O2SAT 98
--- NOTE | 2017-02-15 18:35 | HHI.PYPN ---
Subjective Remarks Patient seen for follow-up, chart reviewed. Patient states that he has been feeling exhausted and endorses several somatic complaints. He states that he has been participating in groups while on the unit. He states that he is now unsure if he would like to be referred to an [facility]. Patient later submits an ROR. Review of Systems Except as stated in HPI: all other systems reviewed are Neg Objective Alert: Yes [place]: Person, Place, Date Mood: Calm Affect: Appropriate Memory Intact: Comment (not formally assessed) Hallucinations: Other (denies at this time) Delusions: Yes Delusion Type: Paranoid Suicidal: Ideation (No SI) Homicidal: Ideation (No HI) Insight/Judgment limited insight, impulse control and judgement Vitals/IOs Vital Signs Date Time Temp Pulse Resp B/P (MAP) Pulse Ox O2 Delivery O2 Flow Rate FiO2 02/15/17 18:14 98.1 85 18 117/67 (84) 98 Assessment & Plan Problem List: (1) Schizophrenia ICD Codes: F20.9 - Schizophrenia, unspecified Status: Acute Assessment & Plan Continue current treatment. discharge planning in progress Justification for Cont. Inpt. At risk for further decompensation if at lower level of care Request HC Surrog/Guard Advoc?: Yes Problem Qualifiers (1) Schizophrenia: Modesto Thurman MD Feb 15, 2017 18:34
[2017-02-15] MEDS: BENZTROPINE MESYLATE 1 MG TAB PO SCH (20:05)
[2017-02-16 05:52] VITALS: BP 102/76; PULSE 92; RESP 18; TEMP 98; O2SAT 98
[2017-02-16] MEDS: carBAMazepine 200 MG TAB PO SCH (08:47)
[2017-02-16] MEDS: HALOPERIDOL 5 MG TAB PO SCH (08:47)
[2017-02-16] MEDS: PANTOPRAZOLE SOD 20 MG DELAYED RELEASE TAB PO SCH (08:47)
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
[2017-02-16] MEDS ORDERED: BENZ0.5T PO (12:05)
[2017-02-16] MEDS ORDERED: PANT20 PO (12:05)
[2017-02-16] MEDS ORDERED: HALO5TAB PO (12:05)
[2017-02-16] MEDS ORDERED: CARB200T PO (12:05)
[2017-02-16] MEDS ORDERED: HALD50IN IM (12:05)
== END 2017-02-16 13:45 | disposition home or self-care (01) | DRG 885 ==
LOC: NEPD 13:41 → NEDA 22:44 → H270 02-04 01:19
PROVIDERS: ADMIT Psychiatry & Neurology Psychiatry; ATTEND Psychiatry & Neurology Psychiatry
DX: F20.0 Paranoid schizophrenia (principal); E11.9 Type 2 diabetes mellitus without complications; B35.1 Tinea unguium; F31.9 Bipolar disorder, unspecified; F60.2 Antisocial personality disorder
CPT/HCPCS: 80053; 80061; 80156; 80307; 83036; 84443; 85025; 93005; J1631

== ENCOUNTER 2017-03-13 11:27 | Emergency (ER) | payer MEDICARE, MEDICAID ==
[~2017-03-13] VITALS: Ht 175.3 cm; Wt 100.0 kg
[~2017-03-13 11:27] MED LIST changes: +HALD50IN IM; +HALO5TAB PO; -OLAN10TA PO; -OMEP20TA PO; +PANT20 PO
[2017-03-13 11:29] VITALS: BP 123/74; PULSE 81; RESP 16; TEMP 98.4; O2SAT 98
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
[2017-03-13 12:59] LABS: AUTOMATED NEUTROPHIL # 3.2 TH/MM3 (1.8-7.7); BASOPHIL % 0.5 % (0.0-2.0); EOSINOPHIL # 0.1 TH/MM3 (0-0.4); EOSINOPHIL % 1.6 % (0.0-4.0); HEMATOCRIT 38.5 % (39.0-51.0); HEMO FLAGS DIFF FINAL; LYMPH % 22.9 % (9.0-44.0); LYMPHOCYTE # 1.1 TH/MM3 (1.0-4.8); MEAN CELL VOLUME 87.6 FL (80.0-100.0); MEAN CORPUSCULAR HEMOGLOBIN 28.9 PG (27.0-34.0); PLATELET COUNT 249 TH/MM3 (150-450); RED CELL DISTRIBUTION WIDTH 13.5 % (11.6-17.2)
[2017-03-13 13:11] LABS: ALT (GPT) 29 U/L (12-78); ANION GAP 5 MEQ/L (5-15); AST (GOT) 12 U/L (15-37); BICARBONATE 28.9 MEQ/L (21.0-32.0); BLOOD UREA NITROGEN 12 MG/DL (7-18); CHLORIDE 108 MEQ/L (98-107); GLOMERULAR FILTRATION RATE 116 ML/MIN (>89); SODIUM (NA) 142 MEQ/L (136-145)
[2017-03-13 13:16] LABS: ALKALINE PHOSPHATASE 104 U/L (45-117); TOTAL BILIRUBIN ADULT 0.3 MG/DL (0.2-1.0)
[2017-03-13 17:00] VITALS: BP 133/77; PULSE 52; RESP 18; TEMP 97.8; O2SAT 100
[2017-03-13 18:00] VITALS: BP 110/57; PULSE 53; RESP 18; O2SAT 97
[2017-03-14 02:18] VITALS: BP 132/59; PULSE 57; RESP 16
--- NOTE | 2017-03-14 09:34 | PD ---
Physical Exam Narrative Pt was initially seen by previous provider and medically clear for psych evaluation for suicide ideation. Informed by psych nurse that pt is clear by psychiatrist for discharge. Data Data Last Documented VS Vital Signs Date Time Temp Pulse Resp B/P (MAP) Pulse Ox O2 Delivery O2 Flow Rate FiO2 03/14/17 08:46 03/14/17 02:18 57 16 03/13/17 18:00 97 Room Air 03/13/17 17:00 97.8 Orders Orders Complete Blood Count With Diff (03/13/17 12:33) Comprehensive Metabolic Panel (03/13/17 12:33) Psych Screen (03/13/17 12:33) Drug Screen, Random Urine (03/13/17 12:33) Diet Regular Basic (03/13/17 Lunch) Diet Regular Basic (03/13/17 Dinner) Diet Regular Basic (03/14/17 Breakfast) Labs Laboratory Tests Test 03/13/17 12:44 03/13/17 13:10 White Blood Count 5.0 TH/MM3 Red Blood Count 4.40 MIL/MM3 Hemoglobin 12.7 GM/DL Hematocrit 38.5 % Mean Corpuscular Volume 87.6 FL Mean Corpuscular Hemoglobin 28.9 PG Mean Corpuscular Hemoglobin Concent 33.0 % Red Cell Distribution Width 13.5 % Platelet Count 249 TH/MM3 Mean Platelet Volume 6.8 FL Neutrophils (%) (Auto) 64.0 % Lymphocytes (%) (Auto) 22.9 % Monocytes (%) (Auto) 11.0 % Eosinophils (%) (Auto) 1.6 % Basophils (%) (Auto) 0.5 % Neutrophils # (Auto) 3.2 TH/MM3 Lymphocytes # (Auto) 1.1 TH/MM3 Monocytes # (Auto) 0.5 TH/MM3 Eosinophils # (Auto) 0.1 TH/MM3 Basophils # (Auto) 0.0 TH/MM3 CBC Comment DIFF FINAL Differential Comment Blood Urea Nitrogen 12 MG/DL Creatinine 0.86 MG/DL Random Glucose 90 MG/DL Total Protein 7.1 GM/DL Albumin 3.5 GM/DL Calcium Level 8.5 MG/DL Alkaline Phosphatase 104 U/L Aspartate Amino Transf (AST/SGOT) 12 U/L Alanine Aminotransferase (ALT/SGPT) 29 U/L Total Bilirubin 0.3 MG/DL Sodium Level 142 MEQ/L Potassium Level 4.0 MEQ/L Chloride Level 108 MEQ/L Carbon Dioxide Level 28.9 MEQ/L Anion Gap 5 MEQ/L Estimat Glomerular Filtration Rate 116 ML/MIN Urine Opiates Screen NEG Urine Barbiturates Screen NEG Urine Amphetamines Screen NEG Urine Benzodiazepines Screen NEG Urine Cocaine Screen NEG Urine Cannabinoids Screen NEG MDM Supervised Visit with MARI: Yes Diagnosis Primary Impression: Suicidal ideation Patient Instructions: General Instructions Departure Forms: Tests/Procedures Additional Instruction: Please follow up with your primary care physician in 3-7 days. Return to the ED if symptoms worsen. Med/Other Pt SpecificInfo: No Change to Meds Disposition: 01 DISCHARGE HOME Condition: Stable Hayde Montero Mar 14, 2017 09:34
== END 2017-03-14 10:21 | disposition home or self-care (01) ==
LOC: NEPD 11:27 → NEPJ 03-14 10:21
DX: F20.9 Schizophrenia, unspecified (principal); F31.9 Bipolar disorder, unspecified; R45.851 Suicidal ideations; R23.8 Other skin changes
CPT/HCPCS: 80053; 80307; 85025; 99284

== ENCOUNTER 2017-03-16 18:48 | Emergency (ER) | payer MEDICARE, MEDICAID ==
[~2017-03-16] VITALS: Ht 175.3 cm; Wt 90.0 kg
[2017-03-16 18:49] VITALS: BP 122/85; PULSE 77; RESP 12; TEMP 98.6; O2SAT 98
[2017-03-16] MEDS ORDERED: ARIP300I IM (19:03)
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
[2017-03-16] MEDS ORDERED: ACETAMINOPHEN 325 MG TAB PO ONE (19:30)
[2017-03-16 20:22] LABS: AUTOMATED NEUTROPHIL # 3.5 TH/MM3 (1.8-7.7); BASOPHIL % 0.6 % (0.0-2.0); EOSINOPHIL # 0.1 TH/MM3 (0-0.4); HEMATOCRIT 40.3 % (39.0-51.0); HEMO FLAGS DIFF FINAL; LYMPH % 22.6 % (9.0-44.0); LYMPHOCYTE # 1.2 TH/MM3 (1.0-4.8); MEAN CELL VOLUME 88.1 FL (80.0-100.0); MEAN CORPUSCULAR HEMOGLOBIN 28.9 PG (27.0-34.0); MEAN CORPUSCULAR HGB CONC 32.8 % (32.0-36.0); MONO % 10.7 % (0.0-8.0); NEUT % 64.1 % (16.0-70.0); PLATELET COUNT 264 TH/MM3 (150-450); RED BLOOD COUNT 4.58 MIL/MM3 (4.50-5.90); RED CELL DISTRIBUTION WIDTH 13.6 % (11.6-17.2); WHITE BLOOD COUNT 5.5 TH/MM3 (4.0-11.0)
[2017-03-16 20:49] LABS: BICARBONATE 29.8 MEQ/L (21.0-32.0); POTASSIUM 3.7 MEQ/L (3.5-5.1)
--- NOTE | 2017-03-16 21:13 | PD ---
Data Data Last Documented VS Vital Signs Date Time Temp Pulse Resp B/P (MAP) Pulse Ox O2 Delivery O2 Flow Rate FiO2 03/16/17 18:49 98.6 77 12 122/85 (97) 98 Orders Orders Acetaminophen (Tylenol) (03/16/17 19:30) Complete Blood Count With Diff (03/16/17 19:40) Basic Metabolic Panel (Bmp) (03/16/17 19:40) Creatine Kinase (Cpk) (03/16/17 19:40) Psych Screen (03/16/17 20:58) Labs Laboratory Tests Test 03/16/17 19:50 White Blood Count 5.5 TH/MM3 Red Blood Count 4.58 MIL/MM3 Hemoglobin 13.2 GM/DL Hematocrit 40.3 % Mean Corpuscular Volume 88.1 FL Mean Corpuscular Hemoglobin 28.9 PG Mean Corpuscular Hemoglobin Concent 32.8 % Red Cell Distribution Width 13.6 % Platelet Count 264 TH/MM3 Mean Platelet Volume 7.1 FL Neutrophils (%) (Auto) 64.1 % Lymphocytes (%) (Auto) 22.6 % Monocytes (%) (Auto) 10.7 % Eosinophils (%) (Auto) 2.0 % Basophils (%) (Auto) 0.6 % Neutrophils # (Auto) 3.5 TH/MM3 Lymphocytes # (Auto) 1.2 TH/MM3 Monocytes # (Auto) 0.6 TH/MM3 Eosinophils # (Auto) 0.1 TH/MM3 Basophils # (Auto) 0.0 TH/MM3 CBC Comment DIFF FINAL Differential Comment Blood Urea Nitrogen 9 MG/DL Creatinine 0.93 MG/DL Random Glucose 95 MG/DL Calcium Level 8.7 MG/DL Sodium Level 140 MEQ/L Potassium Level 3.7 MEQ/L Chloride Level 105 MEQ/L Carbon Dioxide Level 29.8 MEQ/L Anion Gap 5 MEQ/L Estimat Glomerular Filtration Rate 106 ML/MIN Total Creatine Kinase 176 U/L MDM Supervised Visit with MARI: Yes Narrative Course I, Dr. Erazo, have reviewed the advance practice practitioner's documentation and am in agreement, met with the patient face to face, made the diagnosis, and the medical decision making was done by me. See her note for further details. Briefly this is a 46-year-old male with history of schizophrenia here requesting psychiatric evaluation because he believes his Haldol and Abilify need to be adjusted. He is complaining of diffuse body pains. He also expresses suicidal ideation to me. Physical exam is unremarkable. No rashes. Normal range of motion in all joints and extremities. Vital signs are within normal limits. CBC and BMP are unremarkable. Patient is medically cleared for psychiatric evaluation and disposition by them. Diagnosis Primary Impression: Chronic paranoid schizophrenia Additional Impression: Suicidal ideation Condition: Stable Jw Erazo MD Mar 16, 2017 21:13
[2017-03-17 07:00] VITALS: BP 118/72; PULSE 72; RESP 16; O2SAT 99
[2017-03-17 14:09] VITALS: BP 120/78; PULSE 80; RESP 18; O2SAT 100
[2017-03-17] MEDS ORDERED: ACETAMINOPHEN 325 MG TAB PO ONE (15:15)
[2017-03-17 18:24] VITALS: BP 121/79; PULSE 65; RESP 18; O2SAT 100; O2SAT 65
--- NOTE | 2017-03-17 18:31 | PD ---
Physical Exam Time Seen by Provider: 18:[address] Hyman has evaluated the patient and the patient will be discharged home. Data Data Last Documented VS Vital Signs Date Time Temp Pulse Resp B/P (MAP) Pulse Ox O2 Delivery O2 Flow Rate FiO2 03/17/17 18:24 65 18 121/79 (93) 100 Room Air 03/16/17 18:49 98.6 Orders Orders Acetaminophen (Tylenol) (03/16/17 19:30) Complete Blood Count With Diff (03/16/17 19:40) Basic Metabolic Panel (Bmp) (03/16/17 19:40) Creatine Kinase (Cpk) (03/16/17 19:40) Psych Screen (03/16/17 20:58) Diet Regular Basic (03/17/17 Breakfast) Diet Regular Basic (03/17/17 Lunch) Diet Regular Basic (03/17/17 Dinner) Acetaminophen (Tylenol) (03/17/17 15:15) Labs Laboratory Tests Test 03/16/17 19:50 White Blood Count 5.5 TH/MM3 Red Blood Count 4.58 MIL/MM3 Hemoglobin 13.2 GM/DL Hematocrit 40.3 % Mean Corpuscular Volume 88.1 FL Mean Corpuscular Hemoglobin 28.9 PG Mean Corpuscular Hemoglobin Concent 32.8 % Red Cell Distribution Width 13.6 % Platelet Count 264 TH/MM3 Mean Platelet Volume 7.1 FL Neutrophils (%) (Auto) 64.1 % Lymphocytes (%) (Auto) 22.6 % Monocytes (%) (Auto) 10.7 % Eosinophils (%) (Auto) 2.0 % Basophils (%) (Auto) 0.6 % Neutrophils # (Auto) 3.5 TH/MM3 Lymphocytes # (Auto) 1.2 TH/MM3 Monocytes # (Auto) 0.6 TH/MM3 Eosinophils # (Auto) 0.1 TH/MM3 Basophils # (Auto) 0.0 TH/MM3 CBC Comment DIFF FINAL Differential Comment Blood Urea Nitrogen 9 MG/DL Creatinine 0.93 MG/DL Random Glucose 95 MG/DL Calcium Level 8.7 MG/DL Sodium Level 140 MEQ/L Potassium Level 3.7 MEQ/L Chloride Level 105 MEQ/L Carbon Dioxide Level 29.8 MEQ/L Anion Gap 5 MEQ/L Estimat Glomerular Filtration Rate 106 ML/MIN Total Creatine Kinase 176 U/L [facility] Supervised Visit with MARI: No Narrative Course Dr. Hyman has evaluated the patient, lifted the Levin act and the patient will be discharged home. Patient contracts safety. Denies suicidal or homicidal ideations. Patient will be provided community resource packet to [facility] for follow-up. Has friends and family for support. Patient is medically cleared for discharge. Diagnosis Primary Impression: Chronic paranoid schizophrenia Additional Impression: Suicidal ideation Referrals: [facility] (Out patient) Psychiatrist [facility] Patient Instructions: General Instructions, Schizophrenia (ED), Suicide Prevention for Adults (ED) Additional Instruction: Contract safety to your self and others Follow-up with psychiatry Follow-up with primary care provider Follow-up with James Malik Return to the emergency department immediately with worsening of symptoms Med/Other Pt SpecificInfo: No Meds Exist/No RX given Disposition: 01 DISCHARGE HOME Condition: Stable Brenda Lynn Mar 17, 2017 18:31
== END 2017-03-17 18:56 | disposition home or self-care (01) ==
LOC: NEPD 18:48 → NEPJ 03-17 18:56
DX: F20.0 Paranoid schizophrenia (principal); R45.851 Suicidal ideations; M79.1 Myalgia
CPT/HCPCS: 80048; 82550; 85025; 99284

== ENCOUNTER 2017-04-14 13:52 | Inpatient (IN) | payer OTHER, MEDICAID, MEDICARE ==
[~2017-04-14] VITALS: Ht 175.3 cm; Wt 86.8 kg
[~2017-04-14 13:52] MED LIST changes: +ARIP300I IM; -HALO5TAB PO
[2017-04-14 13:55] VITALS: BP 137/83; PULSE 76; RESP 16; TEMP 97.9; O2SAT 98
[2017-04-14 15:33] LABS: AUTOMATED NEUTROPHIL # 4.2 TH/MM3 (1.8-7.7); BASOPHIL % 0.6 % (0.0-2.0); EOSINOPHIL # 0.1 TH/MM3 (0-0.4); EOSINOPHIL % 1.4 % (0.0-4.0); HEMATOCRIT 39.5 % (39.0-51.0); HEMO FLAGS DIFF FINAL; LYMPH % 21.1 % (9.0-44.0); LYMPHOCYTE # 1.3 TH/MM3 (1.0-4.8); MEAN CELL VOLUME 88.5 FL (80.0-100.0); MEAN CORPUSCULAR HEMOGLOBIN 29.5 PG (27.0-34.0); MEAN CORPUSCULAR HGB CONC 33.4 % (32.0-36.0); NEUT % 65.9 % (16.0-70.0); PLATELET COUNT 274 TH/MM3 (150-450); RED BLOOD COUNT 4.46 MIL/MM3 (4.50-5.90); RED CELL DISTRIBUTION WIDTH 13.3 % (11.6-17.2); WHITE BLOOD COUNT 6.3 TH/MM3 (4.0-11.0)
[2017-04-14 15:55] LABS: ALT (GPT) 73 U/L (12-78); ANION GAP 5 MEQ/L (5-15); AST (GOT) 61 U/L (15-37); BICARBONATE 29.9 MEQ/L (21.0-32.0); BLOOD UREA NITROGEN 8 MG/DL (7-18); CHLORIDE 104 MEQ/L (98-107); GLOMERULAR FILTRATION RATE 119 ML/MIN (>89); POTASSIUM 3.7 MEQ/L (3.5-5.1); SODIUM (NA) 139 MEQ/L (136-145)
[2017-04-14] MEDS ORDERED: TRAZ50TA12 PO (15:57)
[2017-04-14] MEDS ORDERED: ZOFR4TAB PO (15:57)
[2017-04-14] MEDS ORDERED: LORA-474 PO (15:57)
[2017-04-14] MEDS ORDERED: BUSP5TAB PO (15:57)
[2017-04-14] MEDS ORDERED: TEGR200T PO (15:57)
[2017-04-14 15:58] LABS: ALKALINE PHOSPHATASE 106 U/L (45-117); TOTAL BILIRUBIN ADULT 0.2 MG/DL (0.2-1.0)
[2017-04-14] MEDS ORDERED: [UNRECOGNIZED DRUG - CODE] IM (15:59)
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
[2017-04-14] MEDS ORDERED: ALUMINUM/MAGNESIUM/SIMETH 30 ML CUP PO PRN (18:15)
[2017-04-14] MEDS ORDERED: MAGNESIUM HYDROXIDE SUSP 30 ML CUP PO PRN (18:15)
[2017-04-14 19:00] VITALS: BP 125/73; PULSE 68; RESP 18; TEMP 98.3; O2SAT 98
[2017-04-15] MEDS: ACETAMINOPHEN 325 MG TAB PO PRN ×2 (03:26→23:33)
[2017-04-15 05:24] VITALS: BP 112/59; PULSE 64; RESP 18; TEMP 98.1; O2SAT 98
[2017-04-15 11:31] LABS: ANION GAP 6 MEQ/L (5-15); BICARBONATE 29.5 MEQ/L (21.0-32.0); BLOOD UREA NITROGEN 10 MG/DL (7-18); CHLORIDE 103 MEQ/L (98-107); GLOMERULAR FILTRATION RATE 127 ML/MIN (>89); POTASSIUM 4.2 MEQ/L (3.5-5.1); SODIUM (NA) 138 MEQ/L (136-145)
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
[2017-04-15 11:38] LABS: HDL CHOLESTEROL 94.5 MG/DL (40.0-60.0); LDL CHOLESTEROL 68 MG/DL (0-99)
[2017-04-15] MEDS: carBAMazepine 200 MG TAB PO SCH ×2 (13:00→18:00)
[2017-04-15] MEDS ORDERED: carBAMazepine 200 MG TAB PO SCH ×2 (13:00→21:00)
[2017-04-15] MEDS: busPIRone HCL 5 MG TAB PO SCH ×2 (13:16→18:29)
[2017-04-15] MEDS: PANTOPRAZOLE SOD 20 MG DELAYED RELEASE TAB PO SCH (13:16)
[2017-04-15 16:29] VITALS: BP 136/70; PULSE 77; RESP 18; TEMP 97.5; O2SAT 99
[2017-04-15 16:41] LABS: HEMOGLOBIN A1a 1.1 %; HEMOGLOBIN A1b 0.7 %; HEMOGLOBIN Ao 86.6 %; HEMOGLOBIN F 0.9 %; HEMOGLOBIN LA1C 1.7 %; HEMOGLOBIN P3 3.4 %
[2017-04-15] MEDS: traZODone HCL 50 MG TAB PO SCH (20:41)
[2017-04-15] MEDS ORDERED: BENZTROPINE MESYLATE 1 MG TAB PO SCH (21:00)
[2017-04-15] MEDS ORDERED: OLANZapine 10 MG TAB PO SCH (21:00)
[2017-04-15] MEDS: LORazepam 1 MG TAB PO PRN (23:33)
[2017-04-16 05:33] VITALS: BP 95/52; PULSE 70; RESP 18; TEMP 98.3; O2SAT 98
[2017-04-16] MEDS: busPIRone HCL 5 MG TAB PO SCH ×3 (08:39→18:58)
[2017-04-16] MEDS: carBAMazepine 200 MG TAB PO SCH ×3 (08:39→18:00)
[2017-04-16] MEDS: PANTOPRAZOLE SOD 20 MG DELAYED RELEASE TAB PO SCH (08:39)
--- NOTE | 2017-04-16 14:53 | HHI.PYPN ---
Subjective Chief Complaint: depression, suicidal ideations, and auditory hallucinations Remarks Patient seen for follow, chart review. Patient found participating in groups activities,, cooperative interview. Patient states that he would like to return back to work as he has an appointment for vocational rehabilitation program intake in April. Patient also mentions that he may be referred to FACT team is working with his senior case manager on this. Patient states that his sleep was a bit disrupted due to being on inpatient unit but was able to sleep. Patient reports that his mood is "good", continues to have auditory hallucinations but told him "positive things" which occur 1-2 times a day. Patient denies any visual hallucinations denies any suicide or HI at this time. Patient states that he has spoken with many people over the phone yesterday including his senior case manager, roommate, and family. Review of Systems Except as stated in HPI: all other systems reviewed are Neg Mental Status Examination Appearance: Appropriate (Maintaining basic hygiene) Consciousness: Alert Orientation: x4 Motor Activity: Normal gait Speech: Stuttering (slightly) Language: Adequate Fund of Knowledge: Inadequate Attention and Concentration: Easily Distracted Memory: Unremarkable (Not tested) Mood: Anxious (less so today) Affect: Appropriate Thought Process & Associations: Disorganized, Other (some flight of ideas) Thought Content: Hallucinations Hallucination Type: Auditory ("positive things") Delusion Type: None Suicidal Ideation: Yes (denies today) Suicidal Plan: No Suicidal Intention: No Homicidal Ideation: No Homicidal Plan: No Homicidal Intention: No Insight: Poor Judgment: Poor Results Vitals/IOs Vital Signs Date Time Temp Pulse Resp B/P (MAP) Pulse Ox O2 Delivery O2 Flow Rate FiO2 04/16/17 05:33 98.3 70 18 95/52 (66) 98 04/14/17 13:55 Room Air Assessment & Plan Problem List: (1) Chronic paranoid schizophrenia ICD Codes: F20.0 - Paranoid schizophrenia Status: Acute Assessment & Plan Patient at this time continues to be noted to be slightly disorganized, tolerating medication regimen well. Patient continues to report auditory hallucinations but are ego syntonic. Patient to continue current treatment. Treatment team exploring options for patient's placement to an assisted living facility. Discharge planning in progress Justification for Cont. Inpt. At risk for further decompensation if at lower level of care Discharge Planning Continues going options for placement into an assisted living facility. Modesto Thurman MD Apr 16, 2017 14:53
[2017-04-16 17:30] VITALS: BP 139/70; PULSE 62; RESP 18; TEMP 98; O2SAT 99
[2017-04-16] MEDS: traZODone HCL 50 MG TAB PO SCH (20:58)
[2017-04-17] MEDS: ACETAMINOPHEN 325 MG TAB PO PRN (03:50)
[2017-04-17] MEDS: LORazepam 1 MG TAB PO PRN (03:50)
[2017-04-17 05:36] VITALS: BP 118/58; PULSE 56; RESP 15; TEMP 98.4; O2SAT 96
[2017-04-17] MEDS: carBAMazepine 200 MG TAB PO SCH ×3 (09:21→17:51)
[2017-04-17] MEDS: PANTOPRAZOLE SOD 20 MG DELAYED RELEASE TAB PO SCH (09:21)
[2017-04-17] MEDS: busPIRone HCL 5 MG TAB PO SCH ×3 (09:21→17:51)
--- NOTE | 2017-04-17 14:54 | HHI.PYPN ---
Subjective Chief Complaint: depression, suicidal ideations, and auditory hallucinations Remarks Pt seen and discussed with staff. No behavioral problems on unit today. He has been compliant with medications and side effects. He reports no SI/HI today and that he is improving. He continues to have AH and requests that MD prescribe him metamucil to remove toxins from his blood. Mental Status Examination Appearance: Appropriate (Maintaining basic hygiene) Consciousness: Alert Orientation: x4 Motor Activity: Normal gait Speech: Stuttering (slightly) Language: Adequate Fund of Knowledge: Inadequate Attention and Concentration: Easily Distracted Memory: Unremarkable (Not tested) Mood: Anxious (less so today) Affect: Appropriate Thought Process & Associations: Tangential, Other (some flight of ideas) Thought Content: Hallucinations Hallucination Type: Auditory ("positive things") Delusion Type: Somatic Suicidal Ideation: Yes (denies today) Suicidal Plan: No Suicidal Intention: No Homicidal Ideation: No Homicidal Plan: No Homicidal Intention: No Insight: Poor Judgment: Poor Results Vitals/IOs Vital Signs Date Time Temp Pulse Resp B/P (MAP) Pulse Ox O2 Delivery O2 Flow Rate FiO2 04/17/17 05:36 98.4 56 15 118/58 (78) 96 04/14/17 13:55 Room Air Assessment & Plan Problem List: (1) Chronic paranoid schizophrenia ICD Codes: F20.0 - Paranoid schizophrenia Status: Acute Assessment & Plan continue current tx plan. Estimated LOS: days Justification for Cont. Inpt. impairments in reality testing Sheela Kaiser MD Apr 17, 2017 14:54
[2017-04-17 18:18] VITALS: BP 129/65; PULSE 73; RESP 18; TEMP 97.3; O2SAT 100
[2017-04-17] MEDS: traZODone HCL 50 MG TAB PO SCH (21:58)
[2017-04-18] MEDS: LORazepam 1 MG TAB PO PRN (05:38)
[2017-04-18] MEDS: ACETAMINOPHEN 325 MG TAB PO PRN (05:41)
[2017-04-18 06:26] VITALS: BP 123/65; PULSE 68; RESP 18; TEMP 98.2; O2SAT 98
[2017-04-18] MEDS: PANTOPRAZOLE SOD 20 MG DELAYED RELEASE TAB PO SCH (08:34)
[2017-04-18] MEDS: busPIRone HCL 5 MG TAB PO SCH ×3 (08:34→17:55)
[2017-04-18] MEDS: carBAMazepine 200 MG TAB PO SCH ×3 (08:34→17:55)
--- NOTE | 2017-04-18 16:01 | HHI.PYPN ---
Subjective Chief Complaint: depression, suicidal ideations, and auditory hallucinations Remarks Pt seen and discussed with staff. No behavioral problems. Remains delusional and demands Ian-Ricks ointment to "rub all over my body for good health". No agitation or aggression. He reports decreased AH. NO SI/HI Mental Status Examination Appearance: Appropriate (Maintaining basic hygiene) Consciousness: Alert Orientation: x4 Motor Activity: Normal gait Speech: Stuttering (slightly) Language: Adequate Fund of Knowledge: Inadequate Attention and Concentration: Easily Distracted Memory: Unremarkable (Not tested) Mood: Anxious (less so today) Affect: Appropriate Thought Process & Associations: Tangential, Other (some flight of ideas) Thought Content: Hallucinations Hallucination Type: Auditory ("positive things") Delusion Type: Somatic Suicidal Ideation: Yes (denies today) Suicidal Plan: No Suicidal Intention: No Homicidal Ideation: No Homicidal Plan: No Homicidal Intention: No Insight: Poor Judgment: Poor Results Vitals/IOs Vital Signs Date Time Temp Pulse Resp B/P (MAP) Pulse Ox O2 Delivery O2 Flow Rate FiO2 04/18/17 06:26 98.2 68 18 123/65 (84) 98 04/14/17 13:55 Room Air Assessment & Plan Problem List: (1) Chronic paranoid schizophrenia ICD Codes: F20.0 - Paranoid schizophrenia Status: Acute Assessment & Plan Continue current tx plan. Estimated LOS: days Justification for Cont. Inpt. impairments in reality testing Sheela Kaiser MD Apr 18, 2017 16:01
[2017-04-18 17:03] VITALS: BP 115/55; PULSE 65; RESP 18; TEMP 98.3; O2SAT 98
[2017-04-18] MEDS: traZODone HCL 50 MG TAB PO SCH (20:27)
[2017-04-19] MEDS: LORazepam 1 MG TAB PO PRN ×2 (04:09→21:34)
[2017-04-19] MEDS: ACETAMINOPHEN 325 MG TAB PO PRN ×2 (04:11→21:34)
[2017-04-19 05:42] VITALS: BP 113/55; PULSE 86; RESP 17; TEMP 98.2; O2SAT 95
[2017-04-19 08:15] LABS: BATH SALTS (MDPV) UR NEG (NEG); ECSTASY (MDMA) UR NEG (NEG); GABAPENTIN UR NEG (NEG); HEROIN (6-ACETYLMORPHINE) UR NEG (NEG); HYDROMORPHONE U NEG (NEG); K2 SPICE UR NEG (NEG); OBMETHADONE UR NEG (NEG); PHENCYCLIDINE URINE NEG (NEG)
[2017-04-19] MEDS: PANTOPRAZOLE SOD 20 MG DELAYED RELEASE TAB PO SCH (08:29)
[2017-04-19] MEDS: busPIRone HCL 5 MG TAB PO SCH ×3 (08:29→17:07)
[2017-04-19] MEDS: carBAMazepine 200 MG TAB PO SCH ×3 (08:29→17:07)
--- NOTE | 2017-04-19 13:53 | HHI.PYPN ---
Subjective Chief Complaint: depression, suicidal ideations, and auditory hallucinations Remarks This is a follow, chart review. Patient with nursing staff reported the patient was irritable this morning as she was told by staff and case preparer and liner to refrain from calling his sister and harassing her. Patient lately had called his sister asking about her daughter who he believes is his daughter. He was reported by nursing staff also the case preparer and liner had mentioned that patient has a delusion on an off. Patient was found walking around the unit noted to be slightly anxious and irritable, cooperative in interview. Patient states that he continues to have auditory hallucinations along with some paranoia noted to have some slight disorganization. Patient states that he had been trying to call his sister and states that she "she is not really my sister because if she was in assisted she would not let me sleep with her". Patient believes that the sister's daughter is his daughter as well. Patient agrees to refrain from calling her sister and will be allowed to maintain phone privileges on the unit. Patient continues to report auditory hallucinations but tell him "positive things" and also continue with paranoid ideations. Patient states that he is waiting for the FACT team to assist in finding adequate housing for him. Review of Systems Except as stated in HPI: all other systems reviewed are Neg Mental Status Examination Appearance: Appropriate (Maintaining basic hygiene) Consciousness: Alert Orientation: x4 Motor Activity: Normal gait Speech: Stuttering (slightly) Language: Adequate Fund of Knowledge: Inadequate Attention and Concentration: Easily Distracted Memory: Unremarkable (Not tested) Mood: Anxious, Irritable Affect: Irritable Thought Process & Associations: Disorganized (slightly), Tangential, Other ( some flight of ideas) Thought Content: Hallucinations Hallucination Type: Auditory ("positive things") Delusion Type: Somatic Suicidal Ideation: Yes (denies today) Suicidal Plan: No Suicidal Intention: No Homicidal Ideation: No Homicidal Plan: No Homicidal Intention: No Insight: Poor Judgment: Poor Results Vitals/IOs Vital Signs Date Time Temp Pulse Resp B/P (MAP) Pulse Ox O2 Delivery O2 Flow Rate FiO2 04/19/17 05:42 98.2 86 17 113/55 (75) 61 Assessment & Plan Problem List: (1) Chronic paranoid schizophrenia ICD Codes: F20.0 - Paranoid schizophrenia Status: Acute Assessment & Plan Patient noted to be slightly irritable today along with some disorganization, and continues with auditory hallucinations, paranoid delusions and delusions of having had child with her sister. Will start 5 mg of Haldol by mouth at bedtime with upper titration as needed. We'll add Colace 100 mg by mouth twice a day for constipation. Patient may remain on phone privileges under the condition that he behavioral texts will tell the number for his phone calls assuring that he does not continue to cause sister. Collateral information pending from his case preparer and liner Chi. Continue rest of medications, discharge planning in progress. Justification for Cont. Inpt. At risk for further decompensation if at lower level of care Discharge Planning Patient pending acceptance to an assisted living facility. Modesto Thurman MD Apr 19, 2017 13:52
[2017-04-19 15:40] VITALS: BP 119/67; PULSE 56; RESP 18; TEMP 97.6; O2SAT 99
[2017-04-19] MEDS: HALOPERIDOL 5 MG TAB PO SCH (21:13)
[2017-04-19] MEDS: traZODone HCL 50 MG TAB PO SCH (21:13)
[2017-04-20] MEDS: ACETAMINOPHEN 325 MG TAB PO PRN ×3 (04:38→21:23)
[2017-04-20 05:41] VITALS: BP 125/63; PULSE 87; RESP 18; TEMP 97.6; O2SAT 98
[2017-04-20] MEDS: PANTOPRAZOLE SOD 20 MG DELAYED RELEASE TAB PO SCH (08:45)
[2017-04-20] MEDS: carBAMazepine 200 MG TAB PO SCH ×3 (08:46→17:58)
[2017-04-20] MEDS: busPIRone HCL 5 MG TAB PO SCH ×3 (08:46→17:58)
[2017-04-20] MEDS: LORazepam 1 MG TAB PO PRN ×2 (10:39→21:22)
--- NOTE | 2017-04-20 13:19 | PD.TTN ---
Patient Problems 1. Discharge planning 2. Medication compliance 3. Knowledge deficit 4. Lack of coping skills Progress Toward Goals Provider Present: Dr. Betzy Thurman Provider Input: Patient is childlike in affect and has been noncompliant with medications. Nurse(s) Input: Patient has childlike affect on unit and has been compliant with medications while on the unit. Psychiatric Counselors Present: MARICARMEN Khan Psych Therapist Input: Patient appears to be disorganized in thought process but is easily redirected. Group Spec/RT/OT/HAYNES Present: Joe Amaya OT Group Spec/RT/OT/HAYNES Input: Patient is selective in group attendance Linda TejadaPhil Apr 20, 2017 13:19
[2017-04-20 16:14] VITALS: BP 122/59; PULSE 53; RESP 18; TEMP 97.7; O2SAT 100
--- NOTE | 2017-04-20 17:17 | HHI.PYPN ---
Subjective Chief Complaint: depression, suicidal ideations, and auditory hallucinations Remarks Patient seen for follow-up, chart reviewed. Discussion with nursing staff, patient attending groups, compliant with treatment, and has not endorsed delusions relating to his sister as before. Patient found in room, calm and cooperative with interview. He states having spoken to his case resolution specialist Chi earlier today which he was told that the paperwork for possible residential assignment would be in by Wednesday or . He continues to endorse AH " a little bit....positive things". He reports his mood being "good". He reports having trying to contact his roommate and his aunt. He states that he expects his sister to try and attempt to reach him here in the hospital. Review of Systems Except as stated in HPI: all other systems reviewed are Neg Mental Status Examination Appearance: Appropriate (Maintaining basic hygiene) Consciousness: Alert Orientation: x4 Motor Activity: Normal gait Speech: Stuttering (slightly) Language: Adequate Fund of Knowledge: Inadequate Attention and Concentration: Adequate Memory: Unremarkable (Not tested) Mood: Anxious, Irritable Affect: Irritable Thought Process & Associations: Goal directed Thought Content: Hallucinations Hallucination Type: Auditory ("positive things") Delusion Type: Somatic Suicidal Ideation: Yes (denies today) Suicidal Plan: No Suicidal Intention: No Homicidal Ideation: No Homicidal Plan: No Homicidal Intention: No Insight: Poor Judgment: Poor Results Vitals/IOs Vital Signs Date Time Temp Pulse Resp B/P (MAP) Pulse Ox O2 Delivery O2 Flow Rate FiO2 04/20/17 16:14 97.7 53 18 122/59 (80) 100 Assessment & Plan Problem List: (1) Chronic paranoid schizophrenia ICD Codes: F20.0 - Paranoid schizophrenia Status: Acute Assessment & Plan Patient continues with AH and delusions of sister having had his child but not so perseverative on them today. Patient abiding by restrictions of calling his sister, has been compliant with treatment and cooperative with staff. Continue current treatment for now. Discharge planning in progress. Justification for Cont. Inpt. At risk for further decompensation if at lower level of care. Discharge Planning Patient to be discharged to [facility] once placement is available. Modesto Thurman MD Apr 20, 2017 17:17
[2017-04-20] MEDS: traZODone HCL 50 MG TAB PO SCH (20:57)
[2017-04-20] MEDS: HALOPERIDOL 5 MG TAB PO SCH (20:57)
[2017-04-21 05:33] VITALS: BP 117/61; PULSE 90; RESP 17; TEMP 98.3; O2SAT 99
[2017-04-21 06:09] VITALS: BP 117/61; PULSE 90; RESP 17; TEMP 98.3; O2SAT 99
[2017-04-21] MEDS: busPIRone HCL 5 MG TAB PO SCH ×3 (08:27→18:00)
[2017-04-21] MEDS: PANTOPRAZOLE SOD 20 MG DELAYED RELEASE TAB PO SCH (08:27)
[2017-04-21] MEDS: carBAMazepine 200 MG TAB PO SCH ×3 (08:27→18:00)
[2017-04-21] MEDS: DOCUSATE SODIUM 100 MG CAP PO SCH ×2 (09:00→20:29)
--- NOTE | 2017-04-21 13:15 | HHI.PYPN ---
Subjective Chief Complaint: depression, suicidal ideations, and auditory hallucinations Remarks Patient seen for follow-up, chart reviewed. Patient found walking on unit, calm and cooperative. Patient states that he looks forward to visit with his case packer as he was told that the FACT team is working on locating appropriate residence. He reports good mood, continues with AH which he reports are "so-so" but describes them as telling him "be stable...be calm". He report constipation. He mentions planning on returning to finding work upon discharge. Review of Systems Except as stated in HPI: all other systems reviewed are Neg Mental Status Examination Appearance: Appropriate (Maintaining basic hygiene) Consciousness: Alert Orientation: x4 Motor Activity: Normal gait Speech: Stuttering (slightly) Language: Adequate Fund of Knowledge: Inadequate Attention and Concentration: Adequate Memory: Unremarkable (Not tested) Mood: Other ("good") Affect: Irritable Thought Process & Associations: Goal directed Thought Content: Hallucinations Hallucination Type: Auditory ("positive things") Delusion Type: Somatic Suicidal Ideation: No Suicidal Plan: No Suicidal Intention: No Homicidal Ideation: No Homicidal Plan: No Homicidal Intention: No Insight: Poor Judgment: Impulsive Results Vitals/IOs Vital Signs Date Time Temp Pulse Resp B/P (MAP) Pulse Ox O2 Delivery O2 Flow Rate FiO2 04/21/17 06:09 98.3 90 17 117/61 (79) 99 Assessment & Plan Problem List: (1) Chronic paranoid schizophrenia ICD Codes: F20.0 - Paranoid schizophrenia Status: Acute Assessment & Plan Patient continues with AH but are egosyntonic, paranoid and somatic delusions but likely part of his baseline. Will start docusate sodium 100mg PO BID for constipation. Continue rest of medications. Discharge planning in progress. Justification for Cont. Inpt. At risk for further decompensation if at lower level of care. Discharge Planning Patient to be discharged to [facility]. Modesto Thurman MD Apr 21, 2017 13:15
--- NOTE | 2017-04-21 13:49 | PD.TTN ---
Patient Problems 1. Discharge planning 2. Medication compliance 3. Knowledge deficit 4. Lack of coping skills Progress Toward Goals Provider Present: Dr. Betzy Thurman Provider Input: Patient is childlike in affect but otherwise has been compliant with medication. Patient is discharged focus and notes to be at baseline Nurse(s) Input: Patient has childlike affect on unit and has been compliant with medications while on the unit. Psychiatric Counselors Present: MARICARMEN Khan Psych Therapist Input: Patient appears to be disorganized in thought process but is easily redirected. Patient has been accepted into FACT team and is waiting for appropriate and safe discharge. Group Spec/RT/OT/HAYNES Present: Joe Amaya OT Group Spec/RT/OT/HAYNES Input: Patient is selective in group attendance Linda TejadaPhil Apr 21, 2017 13:49
[2017-04-21] MEDS: ACETAMINOPHEN 325 MG TAB PO PRN ×2 (15:08→20:19)
[2017-04-21] MEDS: LORazepam 1 MG TAB PO PRN (15:10)
[2017-04-21 17:00] VITALS: BP 129/74; PULSE 60; RESP 18; TEMP 98.4; O2SAT 98
[2017-04-21] MEDS: traZODone HCL 50 MG TAB PO SCH (20:19)
[2017-04-21] MEDS: HALOPERIDOL 5 MG TAB PO SCH (20:19)
[2017-04-22 05:27] VITALS: BP 106/67; PULSE 75; RESP 18; TEMP 98.2; O2SAT 99
[2017-04-22] MEDS: PANTOPRAZOLE SOD 20 MG DELAYED RELEASE TAB PO SCH (08:34)
[2017-04-22] MEDS: busPIRone HCL 5 MG TAB PO SCH (08:34)
[2017-04-22] MEDS: carBAMazepine 200 MG TAB PO SCH (08:35)
[2017-04-22] MEDS: DOCUSATE SODIUM 100 MG CAP PO SCH (08:36)
[2017-04-22] MEDS ORDERED: PANT20 PO (11:02)
[2017-04-22] MEDS ORDERED: DOCU1CAP39 PO (11:02)
[2017-04-22] MEDS ORDERED: CARB200T PO (11:02)
[2017-04-22] MEDS ORDERED: BUSP5TAB PO (11:02)
[2017-04-22] MEDS ORDERED: HALO5TAB PO (11:02)
[2017-04-22] MEDS ORDERED: TRAZ50TA12 PO (11:02)
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
== END 2017-04-22 12:30 | disposition home or self-care (01) | DRG 885 ==
LOC: NEPJ 13:52 → NEDA 18:14 → H260 19:40
PROVIDERS: ADMIT Student in an Organized Health Care Education/Training Program; ATTEND Student in an Organized Health Care Education/Training Program
DX: F20.0 Paranoid schizophrenia (principal); Z91.138 Patient's unintentional underdosing of medication regimen for other reason; K59.00 Constipation, unspecified; Z59.0 Homelessness; T50.996A Underdosing of other drugs, medicaments and biological substances, initial encounter; Y92.59 Other trade areas as the place of occurrence of the external cause
CPT/HCPCS: 80048; 80053; 80061; 80156; 80307; 83036; 85025; G0481

== ENCOUNTER 2017-06-06 12:34 | Emergency (ER) | payer MEDICARE, MEDICAID ==
[~2017-06-06] VITALS: Ht 175.3 cm; Wt 82.0 kg
[~2017-06-06 12:34] MED LIST changes: -ARIP300I IM; -BENZ0.5T PO; +BUSP5TAB PO; +DOCU1CAP39 PO; -HALD50IN IM; +HALO5TAB PO; +LORA-474 PO; +TRAZ50TA12 PO; +ZOFR4TAB PO; +[UNRECOGNIZED DRUG - CODE] IM
[2017-06-06 12:39] VITALS: BP 139/71; PULSE 87; RESP 14; TEMP 98.4; O2SAT 98
[2017-06-06] MEDS ORDERED: ACETAMINOPHEN 500 MG CPLT PO ONE (14:15)
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
[2017-06-06] MEDS ORDERED: MAPA500T13 PO (14:23)
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
== END 2017-06-06 14:45 | disposition home or self-care (01) ==
LOC: NEPD 12:34
DX: S60.221A Contusion of right hand, initial encounter (principal); F31.9 Bipolar disorder, unspecified; F41.9 Anxiety disorder, unspecified; R73.03 Prediabetes; R56.9 Unspecified convulsions; F20.9 Schizophrenia, unspecified; Y04.2XXA Assault by strike against or bumped into by another person, initial encounter; Z79.899 Other long term (current) drug therapy; Z88.6 Allergy status to analgesic agent
CPT/HCPCS: 73130; 99283

== ENCOUNTER 2017-06-24 12:27 | Inpatient (IN) | payer MEDICARE, MEDICAID ==
[~2017-06-24] VITALS: Ht 175.3 cm; Wt 81.2 kg
[~2017-06-24 12:27] MED LIST changes: +MAPA500T13 PO
[2017-06-24 12:29] VITALS: BP 133/77; PULSE 63; RESP 16; TEMP 98.2; O2SAT 100
[2017-06-24] MEDS ORDERED: LORazepam 2 MG/ML VIAL IM ONE (14:15)
[2017-06-24] MEDS ORDERED: diphenhydrAMINE HCL 50 MG/ML VIAL IM ONE (14:15)
[2017-06-24] MEDS ORDERED: ZIPRASIDONE MESYLATE 20 MG VIAL IM ONE (14:15)
[2017-06-24 15:33] LABS: AUTOMATED NEUTROPHIL # 3.9 TH/MM3 (1.8-7.7); BASOPHIL % 0.4 % (0.0-2.0); EOSINOPHIL # 0.2 TH/MM3 (0-0.4); EOSINOPHIL % 2.7 % (0.0-4.0); HEMATOCRIT 38.6 % (39.0-51.0); HEMOGLOBIN 12.7 GM/DL (13.0-17.0); LYMPH % 20.5 % (9.0-44.0); LYMPHOCYTE # 1.3 TH/MM3 (1.0-4.8); MEAN CELL VOLUME 87.3 FL (80.0-100.0); MEAN CORPUSCULAR HEMOGLOBIN 28.8 PG (27.0-34.0); MEAN PLATELET VOLUME 6.9 FL (7.0-11.0); MONO % 12.3 % (0.0-8.0); MONOCYTE # 0.8 TH/MM3 (0-0.9); NEUT % 64.1 % (16.0-70.0); PLATELET COUNT 209 TH/MM3 (150-450); RED BLOOD COUNT 4.42 MIL/MM3 (4.50-5.90); RED CELL DISTRIBUTION WIDTH 12.8 % (11.6-17.2); WHITE BLOOD COUNT 6.1 TH/MM3 (4.0-11.0)
[2017-06-24 15:53] LABS: ALBUMIN 3.3 GM/DL (3.4-5.0); AST (GOT) 24 U/L (15-37); BLOOD UREA NITROGEN 8 MG/DL (7-18); CALCIUM 8.2 MG/DL (8.5-10.1); CHLORIDE 107 MEQ/L (98-107); GLOMERULAR FILTRATION RATE 125 ML/MIN (>89); GLUCOSE,RANDOM 80 MG/DL (74-106); SODIUM (NA) 142 MEQ/L (136-145)
[2017-06-24 16:01] LABS: ACETAMINOPHEN LESS THAN 2.0 MCG/ML (10.0-30.0); ALKALINE PHOSPHATASE 97 U/L (45-117); ALT (GPT) 31 U/L (12-78); TOTAL BILIRUBIN ADULT LESS THAN 0.1 MG/DL (0.2-1.0); TOTAL PROTEIN 6.6 GM/DL (6.4-8.2)
--- NOTE | 2017-06-24 16:32 | PD ---
HPI Chief Complaint: Psychiatric Symptoms Time Seen by Provider: 14:46 Travel History International Travel<30 days: No Contact w/Intl Traveler<30days: No Traveled to known affect area: No History of Present Illness HPI 47-year-old male presents voluntarily for psych evaluation. According to the triage note the patient arrived "stating that he has been more agitated and depressed and that he wants to hurt himself. He has history of suicidal attempts. He cannot recall when with complaints of Pt presents for psych eval. his case maker states he is very irritated and agitated and he has history of schizoaffective disorder, PTSD, bipolar disorder." On my examination the patient is lethargic after being administered Geodon, Benadryl, and Ativan. He is easily arousable. He says he is suicidal at this time but has no plan. Denies homicidal ideations. Denies illicit drug use, alcohol use, tobacco use. Denies visual or auditory hallucinations. Duration unknown. No known relieving or aggravating factors. Patient has history of schizophrenia. Has no emergent medical complaints. No other modifying factors or associated signs and symptoms. PFSH Past Medical History Bipolar Disorder: Yes Anxiety: Yes Depression: Yes Cancer: No Cardiovascular Problems: Yes Cerebrovascular Accident: No Diabetes: Yes (borderline) Diminished Hearing: No Endocrine: No Gastrointestinal Disorders: No Genitourinary: No Headaches: No Immune Disorder: No Implanted Vascular Access Dvce: No Musculoskeletal: No Neurologic: Yes (SEIZURES) Psychiatric: Yes (Hx of treatment for Schizophrenia) Reproductive: No Respiratory: No Migraines: No Schizophrenia: Yes Seizures: Yes Past Surgical History Abdominal Surgery: No Cardiac Surgery: No Ear Surgery: No Endocrine Surgery: No Eye Surgery: No Genitourinary Surgery: No Gynecologic Surgery: No Neurologic Surgery: No Oral Surgery: No Thoracic Surgery: Yes Other Surgery: Yes (ORTHOPEDIC SX) Social History Alcohol Use: No Tobacco Use: No Substance Use: No Allergies-Medications (Allergen,Severity, Reaction): Coded Allergies: Pork/Porcine Containing Products (Unverified Allergy, Severe, 03/16/17) ibuprofen (Unverified Allergy, Unknown, 03/16/17) Uncoded Allergies: zucchini (Allergy, Mild, Itching, 12/23/16) Reported Meds & Prescriptions Reported Meds & Active Scripts Active Mapap Extra Strength (Acetaminophen) 500 Mg Tab 1,000 Mg PO Q4-6H PRN Protonix (Pantoprazole Sodium) 20 Mg Tab 20 Mg PO DAILY 30 Days Dok (Docusate Sodium) 100 Mg Cap 100 Mg PO BID 30 Days Buspirone (Buspirone HCl) 5 Mg Tab 5 Mg PO TID 30 Days Haloperidol 5 Mg Tab 5 Mg PO HS 30 Days Trazodone (Trazodone HCl) 50 Mg Tab 50 Mg PO HS 30 Days Carbamazepine 200 Mg Tab 200 Mg PO TID 30 Days Protonix (Pantoprazole Sodium) 20 Mg Tab 20 Mg PO DAILY 10 Days Reported Haloperidol Decanoate 100 (Haloperidol Decanoate) 100 Mg/Ml Ampul 100 Mg IM MONTHLY Ativan (Lorazepam) 1 Mg Tab 1 Mg PO Q12HR PRN Zofran (Ondansetron HCl) 4 Mg Tab 4 Mg PO TID PRN Review of Systems Except as stated in HPI: all other systems reviewed are Neg Physical Exam Narrative GENERAL: Well-nourished, well-developed black male patient, in no acute distress SKIN: Warm and dry. HEAD: Atraumatic. Normocephalic. EYES: Pupils equal and round. ENT: Mucosa pink and moist. NECK: Supple. Trachea midline. CARDIOVASCULAR: Regular rate and rhythm. No murmur appreciated. RESPIRATORY: No accessory muscle use. Clear to auscultation. Breath sounds equal bilaterally. GASTROINTESTINAL: Abdomen soft, non-tender, nondistended. Hepatic and splenic margins not palpable. Bowel sounds are active 4 quadrants. MUSCULOSKELETAL: No obvious deformities. No clubbing. No cyanosis. No edema. BACK: No CVA tenderness. NEUROLOGICAL: Lethargic and easily arousable. No obvious cranial nerve deficits. Motor grossly within normal limits. Normal speech. Moves all extremities. 5/5 strength to all extremities. PSYCHIATRIC: Sleeping. Data Data Last Documented VS Vital Signs Date Time Temp Pulse Resp B/P (MAP) Pulse Ox O2 Delivery O2 Flow Rate FiO2 06/24/17 12:29 98.2 63 16 133/77 (95) 100 Orders Orders Lorazepam Inj (Ativan Inj) (06/24/17 14:15) Ziprasidone Inj (Geodon Inj) (06/24/17 14:15) Diphenhydramine Inj (Benadryl Inj) (06/24/17 14:15) Complete Blood Count With Diff (06/24/17 14:43) Comprehensive Metabolic Panel (06/24/17 14:43) Carbamazepine (Tegretol) (06/24/17 14:43) Psych Screen (06/24/17 14:43) Drug Screen, Random Urine (06/24/17 14:43) Alcohol (Ethanol) (06/24/17 14:43) Salicylates (Aspirin) (06/24/17 14:43) Tylenol (Acetaminophen) (06/24/17 14:43) Labs Laboratory Tests Test 06/24/17 13:50 06/24/17 15:05 Urine Opiates Screen NEG Urine Barbiturates Screen NEG Urine Amphetamines Screen NEG Urine Benzodiazepines Screen NEG Urine Cocaine Screen NEG Urine Cannabinoids Screen NEG White Blood Count 6.1 TH/MM3 Red Blood Count 4.42 MIL/MM3 Hemoglobin 12.7 GM/DL Hematocrit 38.6 % Mean Corpuscular Volume 87.3 FL Mean Corpuscular Hemoglobin 28.8 PG Mean Corpuscular Hemoglobin Concent 33.0 % Red Cell Distribution Width 12.8 % Platelet Count 209 TH/MM3 Mean Platelet Volume 6.9 FL Neutrophils (%) (Auto) 64.1 % Lymphocytes (%) (Auto) 20.5 % Monocytes (%) (Auto) 12.3 % Eosinophils (%) (Auto) 2.7 % Basophils (%) (Auto) 0.4 % Neutrophils # (Auto) 3.9 TH/MM3 Lymphocytes # (Auto) 1.3 TH/MM3 Monocytes # (Auto) 0.8 TH/MM3 Eosinophils # (Auto) 0.2 TH/MM3 Basophils # (Auto) 0.0 TH/MM3 CBC Comment DIFF FINAL Differential Comment Blood Urea Nitrogen 8 MG/DL Creatinine 0.80 MG/DL Random Glucose 80 MG/DL Total Protein 6.6 GM/DL Albumin 3.3 GM/DL Calcium Level 8.2 MG/DL Alkaline Phosphatase 97 U/L Aspartate Amino Transf (AST/SGOT) 24 U/L Alanine Aminotransferase (ALT/SGPT) 31 U/L Total Bilirubin LESS THAN 0.1 MG/DL Sodium Level 142 MEQ/L Potassium Level 3.7 MEQ/L Chloride Level 107 MEQ/L Carbon Dioxide Level 28.0 MEQ/L Anion Gap 7 MEQ/L Estimat Glomerular Filtration Rate 125 ML/MIN Salicylates Level LESS THAN 1.7 MG/DL Acetaminophen Level LESS THAN 2.0 MCG/ML Carbamazepine (Tegretol) Level 8.0 MCG/ML Ethyl Alcohol Level LESS THAN 3 MG/DL MDM Medical Decision Making Medical Screen Exam Complete: Yes Emergency Medical Condition: Yes Medical Record Reviewed: Yes Differential Diagnosis Medical clearance for psych evaluation, aggressive behavior, PTSD, paranoid schizophrenia Narrative Course Patient presents voluntarily and was Levin acted by Dr. Hyman. Physical examination and vital signs are essentially unremarkable. Patient has no medical complaints to report. Psych screen has been ordered. If the laboratory results are unremarkable, the patient will be medically cleared for psychiatric evaluation and disposition. Diagnosis Primary Impression: Medical clearance for psychiatric admission Condition: Stable Brenda Lynn [facility] Jun 24, 2017 16:32
[2017-06-24 17:34] VITALS: BP 95/55; PULSE 60; RESP 18; TEMP 97.7; O2SAT 99
--- NOTE | 2017-06-24 17:42 | PD ---
History of Present Illness Chief Complaint: Psychiatric Symptoms Time Seen by Provider: 17:15 Travel History International Travel<30 Days: No Contact w/Intl Traveler<30days: No Known affected area: No Legal Status Legal Status: Involuntary Levin Act Signed By: Carly White Levin Act Comment: Dr. Stewart Hyman History of Present Illness: History of Present Illness HPI 47-year-old male with history of schizophrenia who presents voluntarily for psych evaluation accompanied by Juan Antonio Malik pillowcase turner. The pillowcase turner reports that the patient has been agitated during the past several days. The patient reported to ED provider that he was feeling depressed and that he wanted to hurt himself. He was agitated in the ED, refusing to answer most questions, yelling, and threatening that he wanted to hurt himself. He required ETO of Geodon and Benadryl and Ativan. He was placed under Levin act by Dr. Stewart Hyman. Electronic medical record is reviewed. Patient with multiple hospitalizations on our psychiatric unit. His last admission was in April 14 of this year. I have made attempts to complete evaluation on this patient but he has refused and becomes agitated . PFSH Past Medical History Bipolar Disorder: Yes Anxiety: Yes Depression: Yes Cancer: No Cardiovascular Problems: Yes Cerebrovascular Accident: No Diabetes: Yes (borderline) Diminished Hearing: No Endocrine: No Gastrointestinal Disorders: No Genitourinary: No Headaches: No Immune Disorder: No Implanted Vascular Access Dvce: No Musculoskeletal: No Neurologic: Yes (SEIZURES) Psychiatric: Yes (Hx of treatment for Schizophrenia) Reproductive: No Respiratory: No Migraines: No Schizophrenia: Yes Seizures: Yes Past Surgical History Abdominal Surgery: No Cardiac Surgery: No Ear Surgery: No Endocrine Surgery: No Eye Surgery: No Genitourinary Surgery: No Gynecologic Surgery: No Neurologic Surgery: No Oral Surgery: No Thoracic Surgery: Yes Other Surgery: Yes (ORTHOPEDIC SX) Psychiatric History Psychiatric History Hx Psychiatric Treatment: Pt has an extensive history of inpatient psychiatric hospitalizations through [facility] . Pt currently receives outpatient psychiatric services through [facility] where he is also linked to case management with [facility]. History of Inpatient Treatment: Yes Guns or firearms in home: No Social History Unable to obtain Hx Alcohol Use: No Hx Tobacco Use: No Hx Substance Use: No Hx of Substance Use Treatment: No Family Psychiatric History Unknown Allergies-Medications (Allergen,Severity, Reaction): Coded Allergies: Pork/Porcine Containing Products (Unverified Allergy, Severe, 03/16/17) ibuprofen (Unverified Allergy, Unknown, 03/16/17) Uncoded Allergies: devinucchini (Allergy, Mild, Itching, 12/23/16) Reported Meds & Prescriptions Reported Meds & Active Scripts Active Mapap Extra Strength (Acetaminophen) 500 Mg Tab 1,000 Mg PO Q4-6H PRN Protonix (Pantoprazole Sodium) 20 Mg Tab 20 Mg PO DAILY 30 Days Dok (Docusate Sodium) 100 Mg Cap 100 Mg PO BID 30 Days Buspirone (Buspirone HCl) 5 Mg Tab 5 Mg PO TID 30 Days Haloperidol 5 Mg Tab 5 Mg PO HS 30 Days Trazodone (Trazodone HCl) 50 Mg Tab 50 Mg PO HS 30 Days Carbamazepine 200 Mg Tab 200 Mg PO TID 30 Days Protonix (Pantoprazole Sodium) 20 Mg Tab 20 Mg PO DAILY 10 Days Reported Haloperidol Decanoate 100 (Haloperidol Decanoate) 100 Mg/Ml Ampul 100 Mg IM MONTHLY Ativan (Lorazepam) 1 Mg Tab 1 Mg PO Q12HR PRN Zofran (Ondansetron HCl) 4 Mg Tab 4 Mg PO TID PRN Review of Systems ROS Limitations: Uncooperative Mental Status Examination Appearance: Appropriate Consciousness: Alert Orientation: x4 Motor Activity: Normal gait Speech: Other (loud and threatening) Language: Adequate Fund of Knowledge: Adequate Attention and Concentration: Other (poor difficult to redirect) Memory: Unremarkable (unable to assess) Mood: Angry, Other (threatening) Affect: Other (congruent to mood) Thought Process & Associations: Other (unable to assess) Thought Content: Other (unable to assess) Hallucination Type: None (does not appear internally stimulated) Delusion Type: None Suicidal Ideation: Yes Suicidal Plan: No Suicidal Intention: No Homicidal Ideation: No Homicidal Plan: No Homicidal Intention: No Insight: Poor Judgment: Impulsive MDM Medical Decision Making Medical Record Reviewed: Yes Assessment/Plan 47-year-old male with history of schizophrenia who presents to the emergency department accompanied by his pillowcase turner from [facility]. The patient is agitated and threatening and has required ETO. Patient has stated he wants to kill himself. Patient was placed under a Levin act. At this time the patient will be admitted to inpatient psychiatric unit for further evaluation, for medication adjustment, and to maintain safety. Orders Orders Lorazepam Inj (Ativan Inj) (06/24/17 14:15) Ziprasidone Inj (Geodon Inj) (06/24/17 14:15) Diphenhydramine Inj (Benadryl Inj) (06/24/17 14:15) Complete Blood Count With Diff (06/24/17 14:43) Comprehensive Metabolic Panel (06/24/17 14:43) Carbamazepine (Tegretol) (06/24/17 14:43) Psych Screen (06/24/17 14:43) Drug Screen, Random Urine (06/24/17 14:43) Alcohol (Ethanol) (06/24/17 14:43) Salicylates (Aspirin) (06/24/17 14:43) Tylenol (Acetaminophen) (06/24/17 14:43) Diet Regular Basic (06/24/17 Dinner) Results Vital Signs Date Time Temp Pulse Resp B/P (MAP) Pulse Ox O2 Delivery O2 Flow Rate FiO2 06/24/17 17:34 97.7 60 18 95/55 (68) 99 Room Air 06/24/17 12:29 98.2 63 16 133/77 (95) 100 Laboratory Tests Test 06/24/17 13:50 06/24/17 15:05 Urine Opiates Screen NEG Urine Barbiturates Screen NEG Urine Amphetamines Screen NEG Urine Benzodiazepines Screen NEG Urine Cocaine Screen NEG Urine Cannabinoids Screen NEG White Blood Count 6.1 Red Blood Count 4.42 Hemoglobin 12.7 Hematocrit 38.6 Mean Corpuscular Volume 87.3 Mean Corpuscular Hemoglobin 28.8 Mean Corpuscular Hemoglobin Concent 33.0 Red Cell Distribution Width 12.8 Platelet Count 209 Mean Platelet Volume 6.9 Neutrophils (%) (Auto) 64.1 Lymphocytes (%) (Auto) 20.5 Monocytes (%) (Auto) 12.3 Eosinophils (%) (Auto) 2.7 Basophils (%) (Auto) 0.4 Neutrophils # (Auto) 3.9 Lymphocytes # (Auto) 1.3 Monocytes # (Auto) 0.8 Eosinophils # (Auto) 0.2 Basophils # (Auto) 0.0 CBC Comment DIFF FINAL Differential Comment Blood Urea Nitrogen 8 Creatinine 0.80 Random Glucose 80 Total Protein 6.6 Albumin 3.3 Calcium Level 8.2 Alkaline Phosphatase 97 Aspartate Amino Transf (AST/SGOT) 24 Alanine Aminotransferase (ALT/SGPT) 31 Total Bilirubin LESS THAN 0.1 Sodium Level 142 Potassium Level 3.7 Chloride Level 107 Carbon Dioxide Level 28.0 Anion Gap 7 Estimat Glomerular Filtration Rate 125 Salicylates Level LESS THAN 1.7 Acetaminophen Level LESS THAN 2.0 Carbamazepine (Tegretol) Level 8.0 Ethyl Alcohol Level LESS THAN 3 Diagnosis Primary Impression: Medical clearance for psychiatric admission Additional Impression: Schizophrenia Admitting Information Admitting Physician Requests: Admit Condition: Stable Problem Qualifiers Additional Impression: Schizophrenia Qualified Codes: F20.9 - Schizophrenia, unspecified Siomara Mckeon [facility] Jun 24, 2017 17:42
[2017-06-24] MEDS ORDERED: ALUMINUM/MAGNESIUM/SIMETH 30 ML CUP PO PRN (18:00)
[2017-06-24] MEDS ORDERED: MAGNESIUM HYDROXIDE SUSP 30 ML CUP PO PRN (18:00)
[2017-06-24] MEDS ORDERED: ARIP1.6I IM (18:36)
[2017-06-24] MEDS: traZODone HCL 50 MG TAB PO SCH ×2 (21:00→21:21)
[2017-06-24 22:03] VITALS: BP 95/54; PULSE 67; RESP 18; TEMP 96.4; O2SAT 99
[2017-06-25 05:51] VITALS: BP 125/79; PULSE 69; RESP 16; TEMP 97.8; O2SAT 99
[2017-06-25] MEDS: busPIRone HCL 5 MG TAB PO SCH ×3 (08:22→17:27)
[2017-06-25] MEDS: carBAMazepine 200 MG TAB PO SCH ×3 (08:22→17:27)
[2017-06-25] MEDS: ACETAMINOPHEN 325 MG TAB PO PRN ×2 (08:23→20:35)
[2017-06-25 11:01] LABS: BICARBONATE 29.3 MEQ/L (21.0-32.0); BLOOD UREA NITROGEN 11 MG/DL (7-18); CALCIUM 8.5 MG/DL (8.5-10.1); CHLORIDE 107 MEQ/L (98-107); CHOLESTEROL 190 MG/DL (120-200); CHOLESTEROL/ HDL RATIO 1.66 RATIO; CREATININE 0.93 MG/DL (0.60-1.30); GLOMERULAR FILTRATION RATE 105 ML/MIN (>89); HDL CHOLESTEROL 114.3 MG/DL (40.0-60.0); LDL CHOLESTEROL 59 MG/DL (0-99); SODIUM (NA) 143 MEQ/L (136-145); TRIGLYCERIDES 84 MG/DL (42-150)
[2017-06-25 11:07] LABS: GLUCOSE,RANDOM 49 MG/DL (74-106)
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
[2017-06-25] MEDS ORDERED: LORazepam 2 MG/ML VIAL IM PRN (13:30)
[2017-06-25 15:25] LABS: HEMOGLOBIN A1C 5.4 % (4.3-6.0)
[2017-06-25 18:06] VITALS: BP 127/71; PULSE 77; RESP 17; TEMP 96.6; O2SAT 100
[2017-06-25] MEDS ORDERED: HALOPERIDOL LACTATE 5 MG/ML AMP ONE (18:13)
[2017-06-25] MEDS ORDERED: LORazepam 2 MG/ML VIAL IM ONE (18:30)
[2017-06-25] MEDS ORDERED: HALOPERIDOL LACTATE 5 MG/ML AMP IM ONE (18:30)
[2017-06-25] MEDS: traZODone HCL 50 MG TAB PO SCH (20:21)
[2017-06-26 05:45] VITALS: BP 122/71; PULSE 86; RESP 18; TEMP 97.2; O2SAT 98
[2017-06-26] MEDS: LORazepam 0.5 MG TAB PO PRN ×2 (08:20→15:05)
[2017-06-26] MEDS: carBAMazepine 200 MG TAB PO SCH ×3 (08:20→18:00)
[2017-06-26] MEDS: busPIRone HCL 5 MG TAB PO SCH ×3 (08:20→18:00)
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
[2017-06-26] MEDS: traZODone HCL 50 MG TAB PO SCH (21:07)
[2017-06-27 05:50] VITALS: BP 132/64; PULSE 80; RESP 16; TEMP 98.6; O2SAT 97
[2017-06-27] MEDS: busPIRone HCL 5 MG TAB PO SCH ×3 (08:17→18:00)
[2017-06-27] MEDS: carBAMazepine 200 MG TAB PO SCH ×3 (08:17→18:00)
--- NOTE | 2017-06-27 12:38 | EKG ---
Date Performed: 06/25/2017 Time Performed: 12:17:25 PTAGE: 47 years EKG: SINUS BRADYCARDIA VOLTAGE CRITERIA FOR LVH Compared to prior tracing no significant change ABNORMAL ECG PREVIOUS TRACING : 02/04/2017 13.17 DOCTOR: Jaya Clifton Interpretating Date/Time 06/27/2017 12:36:27
--- NOTE | 2017-06-27 17:11 | HHI.PYPN ---
Subjective Remarks Pt seen and discussed with staff. He has been less labile today and has been cooperative with staff. He remains paranoid and suspicious but has been compliant with medications. No SI/HI Mental Status Examination Appearance: Appropriate Consciousness: Alert Orientation: x4 Motor Activity: Normal gait, Other (no motor abnormalities noted) Speech: Unremarkable Language: Adequate Fund of Knowledge: Adequate Attention and Concentration: Adequate Memory: Unremarkable Mood: Appropriate Affect: Flat Thought Process & Associations: Linear Thought Content: Bizarre thinking Hallucination Type: Auditory Delusion Type: None Suicidal Ideation: No Suicidal Plan: No Suicidal Intention: No Homicidal Ideation: No Homicidal Plan: No Homicidal Intention: No Insight: Poor (likely chronic condition) Judgment: Poor (likely chronic condition) Results Vitals/IOs Vital Signs Date Time Temp Pulse Resp B/P (MAP) Pulse Ox O2 Delivery O2 Flow Rate FiO2 06/27/17 05:50 98.6 80 16 132/64 (86) 97 06/24/17 17:34 Room Air Assessment & Plan Problem List: (1) Schizophrenia ICD Codes: F20.9 - Schizophrenia, unspecified Status: Acute (2) Antisocial personality traits Status: Acute Assessment & Plan Pt improving. Continue current tx plan. Estimated LOS: days Justification for Cont. Inpt. impairments in reality testing Request HC Surrog/Guard Advoc?: No Problem Qualifiers (1) Schizophrenia: Qualified Codes: F20.0 - Paranoid schizophrenia Sheela Kaiser MD Jun 27, 2017 17:11
[2017-06-27 17:54] VITALS: BP 120/60; PULSE 60; RESP 16; TEMP 98.5; O2SAT 98
[2017-06-27] MEDS: traZODone HCL 50 MG TAB PO SCH (20:31)
[2017-06-28 06:06] VITALS: BP 118/66; PULSE 66; RESP 18; TEMP 98.4; O2SAT 99
[2017-06-28] MEDS: busPIRone HCL 5 MG TAB PO SCH ×2 (09:04→13:29)
[2017-06-28] MEDS: carBAMazepine 200 MG TAB PO SCH ×2 (09:04→13:29)
[2017-06-28] MEDS ORDERED: BUSP5TAB PO (09:53)
[2017-06-28] MEDS ORDERED: TRAZ50TA12 PO (09:53)
[2017-06-28] MEDS ORDERED: CARB200T PO (09:53)
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
== END 2017-06-28 13:35 | DRG 885 ==
LOC: NEPJ 12:27 → NEDA 18:02 → H270 21:00
PROVIDERS: ADMIT Psychiatry & Neurology Psychiatry; ATTEND Psychiatry & Neurology Psychiatry
DX: F20.0 Paranoid schizophrenia (principal); E11.9 Type 2 diabetes mellitus without complications; F60.2 Antisocial personality disorder; F31.9 Bipolar disorder, unspecified; F43.20 Adjustment disorder, unspecified; G40.909 Epilepsy, unspecified, not intractable, without status epilepticus
CPT/HCPCS: 80048; 80053; 80061; 80156; 80307; 82948; 83036; 85025; 93005; 96372; J1200; J1630; J2060; J3486